=== PATIENT | male | born 1930 | race Caucasian/White ===

== ENCOUNTER 2016-05-04 09:14 | Inpatient (IN) | payer MEDICARE ==
[2016-05-04] VITALS (15 sets, daily range): BP systolic 96–168; BP diastolic 48–74; PULSE 74–109; RESP 16–32; O2SAT 89–98
[~2016-05-04] VITALS: Ht 175.3 cm; Wt 101.9 kg
[~2016-05-04 09:14] MED LIST: AMLO10TA3 PO; ASPI-628 PO; CHOL200025 PO; FURO80TA83 PO; INSU100I13 SUBQ; Insulin Lispro SUBQ; LOVA20TA PO; POTA20TA7 PO; TAMS0.4C29 PO
--- NOTE | 2016-05-04 09:21 | ED.REPORT ---
HPI-General Illness Date of Service May 04, 2016 ED Provider: Juan Do DO Pt is an 85 y/o male w/ a hx of CHF, IDDM, hypertension, presenting to the ED via EMS due to confusion onset this morning. 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 Today, he drove to [employer] with his van, picked up the laundry, and then drove home instead of the laundromat. His son-in-law went to his home to find him there instead of at the laundromat where he should have been. He was apparently acting normally and was able to drive behind his son-in- law back to the laundromat without problems. He got out of the van and unloaded the laundry and sat down to have coffee. He then drove home. His son-in-law remained concerned about his behavior and decided to check up on him back at his house and found him sitting in his van with the engine off and the ronquillo taken out of the ignition staring meaninglessly ahead. EMS was then called and found the patient to be "dazed and confused" with vital signs including O2 sat of 80% on RA, BP 200/70, blood glucose 63, HR 100. He c/o productive cough. Pt denies SOB, fever, abdominal pain, lower extremity edema, dysuria. The patient' s was admitted a few days ago for respiratory distress which was found to be caused by Influenza B. Nursing Notes Stated Complaint: CONFUSION Nursing Notes Reviewed: Yes Allergies: Coded Allergies: No Known Allergies (Verified , 05/04/16) Scheduled Amlodipine (Amlodipine) 10 Mg Tablet 10 MG PO DAILY Aspirin (Aspirin) 81 Mg Tablet 81 MG PO DAILY Calcium Carbonate (Calcium) 600 Mg Tablet 1,200 MG PO DAILY Cholecalciferol (Vitamin D3) (Vitamin D3) 400 Unit Tablet 400 UNIT PO DAILY Furosemide (Furosemide) 80 Mg Tab 80 MG PO DAILY Insulin Glargine (Lantus U100 Insulin Vial) 100 Unit/Ml Vial 60 UNIT SUBQ MORNING Insulin Human Lispro (HumaLOG U100 Insulin Vial) 100 Unit/Ml Unit 7 UNIT SUBQ TIDWM Check blood sugars before meals and at bedtime. Use correction factor only before meals. Blood Sugar Lispro Correction: <151, 0 units; 151-175, 1 unit; 176-200, 2 units; 201-225, 3 units; 226-250, 4 units; 251-275, 5 units; 276-300 , 6 units; 301-325, 7 units; 326-350, 8 units; 351-375, 9 units; 376-400, 10 units; >400, 12 units. Lovastatin (Lovastatin) 20 Mg Tablet 20 MG PO HS Metformin HCl (Metformin HCl ER) 1,000 Mg [id number] 1,000 MG PO BID Metoprolol Tartrate (Metoprolol Tartrate) 25 Mg Tablet 25 MG PO BID Potassium Chloride (Potassium Chloride) 20 Meq Tab.er.prt 20 MEQ PO DAILY Tamsulosin ER (Tamsulosin ER) 0.4 Mg Cap.er.24h 0.4 MG PO HS General Time Seen by MD: 09:17 Chief Complaint Other (Confusion) Hx Obtained From: Patient, Son, EMS Arrived By: Ambulance Sudden in Onset?: No Onset Occurred: 1 - 4 hours ago Symptom Duration: Since onset Severity: Current: No pain currently Severity: Maximum: No pain Past Medical History Past Medical History CHF Hypertension Hx kidney stones Hx prostate CA IDDM Past Surgical History Left knee replacement Smoking History Former Smoker Social History Alcohol Use: "Social" Drug Use: Denies drug use Other Social History: Good social support Ambulatory Status Independent Review of Systems Full Review of Systems Constitutional: Denies: Chills, Fever Respiratory: Reports: Prod cough, green, Prod cough, yellow, Denies: Shortness of breath Cardiovascular: Denies: Chest pain, Edema GI: Denies: Abdominal pain, Diarrhea, Nausea, Vomiting Neurologic: Reports: Confusion, Denies: Focal weakness, Numbness Complete sys rev & neg: except as marked. Physical Exam Vital Signs Vital Signs Date Time Temp Pulse Resp B/P Pulse Ox O2 Delivery O2 Flow Rate FiO2 05/04/16 11:14 102 32 161/64 92 Simple Mask 7 05/04/16 10:36 95 28 168/57 94 Simple Mask 7 05/04/16 10:35 89 Nasal Cannula 6 05/04/16 09:22 37.6 108 32 164/64 92 Nasal Cannula 3 Initial VS: Reviewed, Vital signs abnormal Head / Eyes: Atraumatic, Normocephalic, PERRL ENT: Mucous membranes moist, Conjunctiva normal, No scleral icterus Neck: Supple, Full range of motion Abdomen / GI: Soft, Non-tender, No guarding, No rebound, No distention Extremities: Vascular intact, Neuro intact, No tenderness Skin: Warm, Dry, No cyanosis Psychiatric: Mood/affect normal, Behavior normal, Normal thought content General/Constitutional: Awake, Alert, No acute distress, Cooperative, Not toxic appearing Hypertensive Respiratory / Chest: Atraumatic, No respiratory distress, No retractions, No stridor, No chest tenderness, No chest wall deformity, No crepitus Diminished breath sounds on bases with rales Tachypneic Cardiovascular: Regular rhythm, Heart sounds NL, No gallop, No murmurs, No rubs , Cap refill not delayed, Peripheral circulation NL Heart Rate / Rhythm: Positive: Tachycardia Trace lower extremity edema Neurologic: Oriented X3, Speech NL, No motor deficits, No sensory deficits, CN II - XII intact Interpretation & Diagnostics Lab Results Interpretation Result Diagram: 05/04/16 0940 05/04/16 0940 Test 05/04/16 09:40 05/04/16 09:42 White Blood Count 11.4th/mm3 (3.8-10.1) Red Blood Count 5.53mil/mm3 (4.40-5.80) Hemoglobin 15.4g/dL (13.8-17.2) Hematocrit 47.3% (41.0-50.0) Mean Corpuscular Volume 85.5fL (81-100) Mean Corpuscular Hemoglobin 27.8pg (27.0-35.0) Mean Corpuscular Hemoglobin Concent 32.6% (32.0-37.0) Red Cell Distribution Width 15.3% (12.3-15.4) Platelet Count 136bil/L (150-400) Neutrophils (%) (Auto) 87.9% (40-74) Lymphocytes (%) (Auto) 3.3% (14-46) Monocytes (%) (Auto) 8.2% (4-12) Eosinophils (%) (Auto) 0.1% (0-5) Basophils (%) (Auto) 0.2% (0-3) Sodium Level 141mEq/L (134-144) Potassium Level 3.9mEq/L (3.5-5.2) Chloride Level 98mEq/L (97-108) Carbon Dioxide Level 24mmol/L (18-29) Blood Urea Nitrogen 17mg/dL (8-27) Creatinine 1.00mg/dL (0.76-1.27) Estimat Glomerular Filtration Rate 76mL/min (>59) Glucose Level 91mg/dL (60-99) Calcium Level 9.3mg/dL (8.5-10.1) Magnesium Level 1.4mg/dL (1.6-2.6) Total Bilirubin 0.5mg/dL (0.0-1.2) Aspartate Amino Transf (AST/SGOT) 34U/L (0-50) Alanine Aminotransferase (ALT/SGPT) 20U/L (0-44) Alkaline Phosphatase 80U/L (25-160) Troponin T 0.010ug/L (0.0-0.011) Pro-B-Type Natriuretic Peptide 217.5pg/mL (0-486) Total Protein 6.3g/dL (6.4-8.4) Albumin 3.5g/dL (3.4-5.0) Procalcitonin 0.27ng/mL (0.00-0.08) Lactic Acid Level 1.6mmol/L (0.4-2.0) ECG Interpretation ECG Interpretation: Sinus rhythm rate 94 RBBB and LAFB No change from prior Time: 10:15 Interpreted by: ED physician Normal ECG Interpretation: No acute ischemic changes, No change from prior ECGs ABG Interpretation ABG Interpretation: 7.419/46/72.6/29.4/4.4 Exam Performed by: [facility] Exam Interpreted by: ED physician Indication: Other (Hypoxia) X-Ray Chest Interpretation Chest Xray Interpretation: IMPRESSION: Increased pulmonary vascularity with appearance of mild pleural effusions suggestive of edema. Superimposed area of consolidation in the right base cannot be excluded. Dictated by: Micaela Vines M.D. on 05/04/2016 at 10:15 Approved by: Micaela Vines M.D. on 05/04/2016 at 10:17 View: Portable, 1 view Interpretation / Wet Read by: Interpret - Radiologist Reviewed Previous Films: Worse Re-Eval/Medical Decision Med Decision/Clinical Course Hypoxic respiratory failure ultimately likely due to influenza. Chest x-ray suggested pulmonary edema and with his CHF history, a dose of Lasix was given. However, ultimately this may represent an atypical pneumonia, Rocephin, azithromycin, and Tamiflu were given while awaiting the results of a nasal swab to confirm if this was influenza. Ultimately patient was placed on BiPAP for management of his shortness of breath, he continued to be high hypoxic and tachypneic despite nebulizer treatments and had high oxygen requirements. Time of Eval: 10:32 Re-Evaluation/Progress Note: Pt rechecked. O2 sat 86% on supplemental O2. Informed pt of need for admission for hypoxia and further evaluation. Pt understands and agrees with plan for admission. All questions addressed. Time of Eval: 11:11 Re-Evaluation/Progress Note: Pt rechecked. Oxygen sat 82% on RA. BiPAP ordered. Tachypneic in 30s despite nebulizer. Consultation : Referral / Consult Name: Brianna Hassan DO Consulted With: Hospitalist Call Returned at: 11:21 Director Of Restaurants: Will see patient, Agrees with eval, Agrees with plan, Accepts admit Note: Discussed case with resident who is under Dr. Hassan today. Counseled Regarding: Diagnosis, Lab results, Need for admission Discharge & Departure Primary Impression: Hypoxia Additional Impressions: CHF (congestive heart failure) Congestive heart failure type: unspecified congestive heart failure type Congestive heart failure chronicity: chronic Qualified Code: I50.9 - Heart failure, unspecified Influenza B Disposition: ADMITTED TO HOSPITAL Discharge Condition All VS Reviewed: Yes Condition: Stable Referrals: Dony Bradley DO (PCP) Rony Attestation Portions of this note were transcribed by Raad Alves. I, Dr. Do, personally performed the history, physical exam and medical decision-making; I reviewed and confirmed the accuracy of the information in the transcribed note. Signed by Rony Olivo, 05/04/16 - 1000 copies to: Dony Bradley Timothy S DO May 04, 2016 09:21 RAAD ALVES May 04, 2016 09:29
[2016-05-04 09:59] LABS: BASOPHILS % (AUTO) 0.2 % (0-3); EOSINOPHILS % (AUTO) 0.1 % (0-5); MONOCYTES % (AUTO) 8.2 % (4-12); Mean Corpuscular Hemoglobin 27.8 pg (27.0-35.0); Mean Corpuscular Volume 85.5 fL (81-100); NEUTROPHILS % (AUTO) 87.9 % (40-74); Platelet Count 136 bil/L (150-400)
--- NOTE | 2016-05-04 10:19 | DRSVH ---
PROCEDURE: X-RAY CHEST ONE VIEW, PORTABLE ([id number]) INDICATIONS: cough TECHNIQUE: One view of the chest was acquired. COMPARISON: [facility], , CHEST 1VW (PORTABLE), 09/27/2013, 10:20. FINDINGS: Surgical changes and devices: None. Lungs and pleura: There is blunting of the costophrenic angles bilaterally with increased pulmonary v ascularity. Mediastinum: Mediastinal contours appear normal. Heart size is normal. Bones and chest wall: No suspicious bony lesions. Overlying soft tissues appear unremarkable. IMPRESSION: Increased pulmonary vascularity with appearance of mild pleural effusions suggestive of e vivek. Superimposed area of consolidation in the right base cannot be excluded. Dictated by: Micaela Vines M.D. on 05/04/2016 at 10:15 Approved by: Micaela Vines M.D. on 05/04/2016 at 10:17
[2016-05-04 10:28] LABS: TROPONIN T 0.01 ug/L (0.0-0.011)
[2016-05-04] MEDS ORDERED: Furosemide 10 mg/mL 4 mL Inj IVPUSH ONE ×2 (10:35)
[2016-05-04] MEDS ORDERED: Azithromycin Inj 500 MG in Dextrose 5% w/Vial Mate 250 ML IV ONE (10:50)
[2016-05-04] MEDS ORDERED: Albuterol-Ipratropium 3 mL Inhalation Solution NEB ONE (10:50)
[2016-05-04] MEDS ORDERED: Albuterol 2.5 mg/3 mL Inhalation Solution NEB ONE (10:50)
[2016-05-04] MEDS ORDERED: cefTRIAXone Inj 2,000 MG in Dextrose 5% Minibag Plus 50 ML IV ONE (10:50)
[2016-05-04] MEDS ORDERED: 0.9% Sodium Chloride 1,000 ML IV ONE (10:55)
[2016-05-04 10:59] LABS: Magnesium 1.4 mg/dL (1.6-2.6)
[2016-05-04] MEDS ORDERED: Magnesium Sulf 4 Gm/100 mL H2O 4 GM in IV Premix 1 EACH IV ONE (11:05)
[2016-05-04] MEDS ORDERED: INSU100V7 SUBQ (11:12)
[2016-05-04] MEDS ORDERED: POTA20TA16 PO (11:12)
[2016-05-04] MEDS ORDERED: CALC600T12 PO (11:12)
[2016-05-04] MEDS ORDERED: INSLIS SUBQ (11:12)
[2016-05-04] MEDS ORDERED: FRSM80T PO (11:12)
[2016-05-04] MEDS ORDERED: CHOL400T PO (11:12)
[2016-05-04] MEDS ORDERED: METO25TA6 PO (11:12)
[2016-05-04] MEDS ORDERED: METF-778 PO (11:12)
[2016-05-04] MEDS ORDERED: ASPI-973 PO (11:15)
[2016-05-04] MEDS ORDERED: Alum-Mag Hydrox-Simeth 30 mL Suspension PO PRN (11:40)
[2016-05-04] MEDS ORDERED: Ondansetron 2 mg/mL 2 mL Inj IVPUSH PRN (11:40)
--- NOTE | 2016-05-04 11:41 | ABG ---
DateTimeAnalyzed 11:37:00 -_ pH ____7.419 - 7.350 7.450 pCO2 ___46.2__ -mmHg 35.0 45.0 pO2 ___72.6__ -mmHg 69.0 116 HCO3- ___29.3__ -mmol/L 22.0 26.0 ABE ____4.4__ -mmol/L -2.0 2.0 tHb ___15.0__ -g/dL O2Hb ___92.4__ -% COHb ____1.1__ -% MetHb ____0.8__ -% sO2 ___94.2__ -% 25.0 FIO2 ___40.0__ -% Pressure_Support ___12.0__ -cmH2O PEEP ____5.0__ -cmH2O Set_RR ___18.0__ -b/min Drawn By MT - Date/Time Notified____ 11:40:00 -_ Spontaneous_RR ___20.0__ -b/min Oxygen Device 1 ____BIPAP - Notified By MT - Notified Whom _O'Micaela - B 751 -mmHg tO2 ___19.5__ -Vol% Stuart test _Positive -
[2016-05-04 12:08] LABS: APPEARANCE,URINE HAZY (CLEAR,HAZY); COLOR,URINE YELLOW (YELLOW); OCCULT BLOOD,URINE SMALL (NEGATIVE); UROBILINOGEN,URINE NORMAL (NORMAL)
[2016-05-04] MEDS: 0.9% Sodium Chloride 1,000 ML IV SCH ×2 (12:47→21:46)
[2016-05-04] MEDS ORDERED: Polyethylene Glycol (PEG) 17 Gm Powder PO PRN (13:50)
--- NOTE | 2016-05-04 16:11 | PCM.HPMED ---
Subjective Date of Service May 04, 2016 Primary Provider: Admitting Physician: Brianna Hassan DO Primary Care Physician: Dony Bradley DO Attending Physician: Brianna Hassan DO Admit Status: From the Emergency Department Chief Complaint: Shortness of breath History of Present Illness: Kar Gonzalez Junior is an 85-year-old male with past medical history remarkable for diastolic heart failure, insulin-dependent diabetes mellitus type II, hypertension, prostate cancer post surgical resection who presents to the [facility] ED via EMS for confusion. 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 The patient's is currently hospitalized with influenza. The patient states that he and his have been sick since last April 29. The patient states that he has been feeling mildly short of breath and with a general sense of illness and muscle aches. The patient denies any sore throat and runny nose or worsening cough. Per patient's daughter's report the patient was sent home from work from the [facility] and when he was found at home he was sitting in his work van with the engine off acting as if in a daze. EMS was called and the patient was noted to have an O2 sat of 80% on room air, blood pressure of 200/70 with a heart rate of 100, and blood glucose of 63. The patient denies any swelling of his hands or feet. He is unsure if he takes a daily water pill. Review of Systems: A comprehensive review of systems was obtained and all are negative except for what is included in the history of present illness. Allergies Coded Allergies: No Known Allergies (Verified , 05/04/16) Home Medications Amlodipine (Amlodipine) 10 Mg Tablet 10 MG PO DAILY Aspirin (Aspirin) 81 Mg Tablet 81 MG PO DAILY Calcium Carbonate (Calcium) 600 Mg Tablet 1,200 MG PO DAILY Cholecalciferol (Vitamin D3) (Vitamin D3) 400 Unit Tablet 400 UNIT PO DAILY Furosemide (Furosemide) 80 Mg Tab 80 MG PO DAILY Insulin Glargine (Lantus U100 Insulin Vial) 100 Unit/Ml Vial 60 UNIT SUBQ MORNING Insulin Human Lispro (HumaLOG U100 Insulin Vial) 100 Unit/Ml Unit 5 UNIT SUBQ TIDWM Lovastatin (Lovastatin) 20 Mg Tablet 20 MG PO HS Metformin HCl (Metformin HCl ER) 1,000 Mg [id number] 1,000 MG PO BID Metoprolol Tartrate (Metoprolol Tartrate) 25 Mg Tablet 25 MG PO BID Potassium Chloride (Potassium Chloride) 20 Meq Tab.er.prt 20 MEQ PO DAILY Tamsulosin ER (Tamsulosin ER) 0.4 Mg Cap.er.24h 0.4 MG PO HS PMH Hypertension Diastolic heart failure Diabetes mellitus mellitus type II insulin-dependent Benign prostatic hypertrophy Prostate cancer Surgical History Left knee arthroplasty Prostate cancer post surgical resection Family History The patient's daughter denies family history of heart attacks, strokes, blood clots. Patient's mother had diabetes mellitus type I. 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 Hx Alcohol Use: No Hx Substance Use: No Hx Tobacco Use: Yes Smoking Status: Former Smoker (quit more than 30 years ago) Living Arrangement: with Family (with in a private residence in [place]) Exam Vital Signs Vital Sign - Last Date Time Temp Pulse Resp B/P Pulse Ox O2 Delivery O2 Flow Rate FiO2 05/04/16 15:45 CPAP/BIPAP 05/04/16 12:45 97 29 124/58 93 45 05/04/16 12:40 37.5 05/04/16 12:06 7 Exam Gen.: Elderly male appearing stated age in mild respiratory distress on BiPAP Eyes: Pupils equal round and reactive to light, sclera anicteric, noninjected conjunctiva, moist mucous membranes HENT: Normocephalic atraumatic, external ears without defect, BiPAP mask in place Neck: Trachea midline, no noted JVD, supple Cardiovascular: Quiet heart tones, regular rate and rhythm with low PVC burden noted, S1 and S2 present no murmurs rubs or gallops noted Lungs: Coarse breath sounds bilaterally in the bases with decreased air movement in the right lower base, intermittent wheezing noted in mid to upper lung cunningham Abdomen: Normoactive bowel sounds, soft, mild tenderness at epigastrium, nondistended, bruising noted in lower abdomen bilaterally consistent with subcutaneous insulin injections Extremities: Mild +1 pitting peripheral edema noted in the lower extremities up to the knee, no cyanosis or clubbing, pulses intact at the radial and dorsalis pedis bilaterally : No Cisneros in place, patient able to urinate spontaneously without difficulty Neuro: No focal neurologic deficits, no facial drooping, able to move all extremities without issue Psych: Alert and oriented to person and place, patient believed he had been in the hospital for several days, difficulty to assess date given due to BiPAP mask , normal mood and affect Lab and Diagnostics Result Diagram: 05/04/1693905/04/16939 Microbiology Patient tested positive for influenza B on nasal swab with biofire PCR X-Rays, CTs and MRIs X-RAY CHEST ONE VIEW, PORTABLE ([id number]) IMPRESSION: Increased pulmonary vascularity with appearance of mild pleural effusions suggestive of edema. Superimposed area of consolidation in the right base cannot be excluded. Dictated by: Micaela Vines M.D. on 05/04/2016 at 10:15 Approved by: Micaela Vines M.D. on 05/04/2016 at 10:17 Assessment & Plan Kar Gonzalez Junior is an 85-year-old male with past medical history remarkable for diastolic heart failure, insulin-dependent diabetes mellitus type II, hypertension, prostate cancer post surgical resection who presents to the [facility] ED via EMS for confusion and was found to have oxygen saturation in the 80s on room air at the time of EMS arrival. 1. Acute hypoxic respiratory failure, present on admission - Patient was noted to have oxygen saturation in the low 80s on EMS arrival - In the ED the patient was noted to be saturating in the mid 70s prior to BiPAP placement per nursing reports - Patient on BiPAP currently with goal oxygen saturation greater than 92% given no history of COPD 2. Sepsis, present on admission, acute - Surgical criteria are met with leukocytosis of greater than 11,000, heart rate of 108 and respiratory rate of 32 at admission - Chest x-ray changes show a right lower lobe infiltrate and a possible left lower lobe infiltrate consistent with a likely lobar pneumonia - Viral PCR of nasal swab positive for influenza B - Pro calcitonin is indeterminate at 0.27, lactate has been normal since admission - IV fluids given currently normal saline at 100 mL's per hour - Patient started on ceftriaxone IV, azithromycin IV, oseltamivir in ED 3. Likely post-influenza pneumonia, present on admission, acute - Continue antibiotic course with ceftriaxone IV and azithromycin to cover gram positives gram negatives and atypicals - Treating sepsis with intravenous fluids trending lactate 4. Influenza B, present on admission, acute - Patient and reportedly became sick last April 29 with similar symptoms - is currently hospitalized with influenza B - Patient tested positive for influenza B on viral PCR - Oseltamivir 75 mg twice a day while inpatient 5. Acute on chronic diastolic congestive heart failure, present on admission - Mild peripheral edema noted on physical exam - Echo from 3 years ago noted diastolic heart failure with preserved ejection fraction - Lasix 40 mg given in the ED - Repeat limited echo 6. Diabetes mellitus type II, present on admission, chronic - Patient medication confirmed with [facility] - Patient to be started on Lantus 60 units daily 05/05/2016 - Patient to be started on high correction scale lispro 05/04/2016 7. Hypertension, present on admission, chronic - Restart patient's home medications including amlodipine and metoprolol 8. Benign prostatic hypertrophy, present on admission, chronic - Restart patient's tamsulosin 9. Hypomagnesemia, present on admission, acute - Magnesium IV repletion performed in [facility] ED - Continue to monitor 10. Mild thrombocytopenia, present on admission, unknown duration - 136,000 at admission - Platelets are an acute phase reactant which can oscillate up or down during times of illness - Continue to monitor Bowel regimen available when necessary Antiemetics available when necessary Patient is admitted to inpatient status with likely length of stay greater than 2 nights given most likely diagnoses, therapies required to treat, and likely complications to treatment. Pain Evaluation: Adequate Pain Control VTE Prophylaxis Indicated: Meets Criteria for Anticoag Therapy VTE Prophylaxis: Sub-Q Heparin (Unfractionated), SCDs VTE Mechanical Devices: Intermittant Pneumatic CD Resuscitation Status: CPR: Attempt Resuscitation Time spent 1 hour Attending Statement The patient was seen and examined together with Dr. Payan on 05/04/16 and I have added additional information to the note above. Bethel Huertas DO May 04, 2016 16:11 Brianna Hassan DO May 05, 2016 13:57
[2016-05-04] MEDS ORDERED: Albuterol 1.25 mg/3 mL Inhalation Solution NEB PRN (16:50)
[2016-05-04] MEDS ORDERED: Glucose 40% Oral Gel 15 Gm Tube PO PRN (17:00)
[2016-05-04] MEDS: Heparin 5,000 Unit/mL Inj SUBQ SCH ×2 (17:24→23:32)
[2016-05-04] MEDS: Sodium Chloride LOK Flush 10 mL Syringe IVFLUSH SCH ×2 (17:24→21:55)
[2016-05-04] MEDS: Insulin LISPRO 300 Unit/3 mL Inj SUBQ SCH ×2 (17:30→21:55)
[2016-05-04] MEDS: Albuterol-Ipratropium 3 mL Inhalation Solution NEB SCH (21:16)
[2016-05-05] VITALS (14 sets, daily range): BP systolic 113–170; BP diastolic 48–82; PULSE 57–97; RESP 15–27; O2SAT 92–98
--- NOTE | 2016-05-05 04:51 | NUR ---
Respiratory Pt on BiPAP since HS and throughout shift with FiO2 at 45%; SpO2 approx. 95-97%. Pt denies feeling dyspneic. Slept in chair at bedside per pt preference. VSS. Tele SR 60s with IVCD.
[2016-05-05 05:10] LABS: BASOPHILS % (AUTO) 0.2 % (0-3); EOSINOPHILS % (AUTO) 0 % (0-5); MONOCYTES % (AUTO) 5.4 % (4-12); Mean Corpuscular Hemoglobin 27.7 pg (27.0-35.0); Mean Corpuscular Volume 87.1 fL (81-100); NEUTROPHILS % (AUTO) 87.1 % (40-74); Platelet Count 127 bil/L (150-400)
[2016-05-05 05:50] LABS: Magnesium 2.4 mg/dL (1.6-2.6); Phosphorus 3.7 mg/dL (2.5-4.9)
[2016-05-05] MEDS: Insulin LISPRO 300 Unit/3 mL Inj SUBQ SCH ×4 (08:00→22:00)
[2016-05-05] MEDS: Albuterol-Ipratropium 3 mL Inhalation Solution NEB SCH ×4 (08:28→21:17)
[2016-05-05] MEDS ORDERED: Azithromycin Inj 500 MG in Dextrose 5% w/Vial Mate 250 ML IV SCH (08:30)
[2016-05-05] MEDS: Sodium Chloride LOK Flush 10 mL Syringe IVFLUSH SCH ×2 (08:30→16:14)
[2016-05-05] MEDS ORDERED: 0.9% Sodium Chloride 250 ML ONE (08:34)
[2016-05-05] MEDS: cefTRIAXone Inj 2,000 MG in Dextrose 5% Minibag Plus 50 ML IV SCH (08:41)
[2016-05-05] MEDS: Insulin GLARgine 100 Unit/mL Syringe SUBQ SCH (08:43)
[2016-05-05] MEDS: Heparin 5,000 Unit/mL Inj SUBQ SCH ×2 (08:43→16:14)
[2016-05-05] MEDS: Potassium Chloride 20 mEq SR Tablet PO SCH (08:44)
--- NOTE | 2016-05-05 10:03 | DRSVH ---
PROCEDURE: X-RAY CHEST ONE VIEW, PORTABLE ([id number]) INDICATIONS: pneumonia TECHNIQUE: One view of the chest was acquired. COMPARISON: [facility], CR, XR CHEST 1VW (PORTABLE), 05/04/2016, 9:38. FINDINGS: Surgical changes and devices: None. Lungs and pleura: There is blunting of the costophrenic angles bilaterally with increased pulmonary v ascularity. Mediastinum: Mediastinal contours appear normal. Heart size is normal. Bones and chest wall: No suspicious bony lesions. Overlying soft tissues appear unremarkable. IMPRESSION: Slight decrease in edema and/or pneumonia involving the lung bases, right greater than le ft. Dictated by: Eric Lama A Interpreted: Cami Gramajo MD on 05/05/2016 at 10:02 Transcribed by: VIKKI on 05/05/2016 at 10:03 Approved by: Cami Gramajo MD, PhD on 05/05/2016 at 16:31
--- NOTE | 2016-05-05 16:01 | NUR ---
Social Work-initial assessment: Data:See initial assessment. Pt is a 85 y/o male who was admitted on 01/03/16 for Hypoxia/CHF per H&P. Pt's insurance is [employer] and PCP is Dony Umana MD. EMR Reviewed. Pt's readmission score is 4-high risk. SW met with pt to discuss discharge planning, SW role explained and initial assessment complete. Pt is alert and oriented x3. Pt resides at home with in a mobile home with three steps to enter where pt remains independent with basic ADLs. Pt ambulates independently and does drive. Pt has no HH or SNF history. Pt states that he has completed DPOA/ advanced directive and his daughter Elma is his DPOA. SW requested a copy of DPOA. Patient's is his JOHNNY and she is currently admitted into [facility]. Pt has no intermediate manager care or VA benefits. No discharge needs identified at this time. SW to continue to follow if any needs arise. Pt's family to provide transport home at discharge. SW provided phone number and plan on white board in room. SW will continue to follow. Plan: Anticipated discharge home via POV when medically ready. No discharge needs identified at this time. SW to continue to follow if any needs arise. Madison Neumann LMSW, GLADYS Addendum: 05/05/16 at 1610 by MADISON NEUMANN Amended: Links added.
[2016-05-05] MEDS ORDERED: Furosemide 10 mg/mL 4 mL Inj IVPUSH ONE (16:10)
--- NOTE | 2016-05-05 16:28 | PCM.PNMED ---
Subjective Date of Service May 05, 2016 Subjective Overnight: No acute events the patient slept in his chair overnight on BiPAP Today: Patient had a mild drop in his blood pressure in the a.m. Initial Lasix dose of 80 mg was adjusted to 40 mg given low blood pressure. The patient states he feels significantly better and was able to maintain decent oxygenation on Oxymask without BiPAP. He states that he was able to talk with his by phone yesterday and he was asking how he could contact her today. He believes he is getting much better. Exam Vital Signs Vital Sign - Last Date Time Temp Pulse Resp B/P Pulse Ox O2 Delivery O2 Flow Rate FiO2 05/05/16 07:19 36.4 66 24 133/49 98 OxyMask 10.00 05/05/16 04:49 45 Intake and Output 05/04/16 05/04/16 05/05/16 Cumulative From/Thru 15:00 23:00 07:00 05/04/16 09:22 - 05/05/16 06:45 Intake Total 625 ml 2154 ml 2779 ml Output Total 500 ml 200 ml 700 ml Balance 125 ml 1954 ml 2079 ml Intake Oral 120 ml 400 ml 520 ml IV Total 505 ml 1754 ml 2259 ml Output Urine Total 500 ml 200 ml 700 ml Exam Gen.: Alert elderly male sitting up appearing stated age in no acute respiratory distress on oxymask, coarse wet cough noted Eyes: Pupils equal round and reactive to light, sclera anicteric, noninjected conjunctiva, moist mucous membranes HENT: Normocephalic atraumatic, external ears without defect, significant oropharyngeal erythema noted without significant postnasal drip Neck: Trachea midline, no noted JVD, supple Cardiovascular: Quiet heart tones, regular rate and rhythm, S1 and S2 present no murmurs rubs or gallops noted Lungs: Coarse breath sounds bilaterally in the bases with decreased air movement in the right lower base, no wheezing noted today Abdomen: Normoactive bowel sounds, soft, mild tenderness at epigastrium, nondistended, bruising noted in lower abdomen bilaterally consistent with subcutaneous insulin injections Extremities: Moderate 2+ pitting peripheral edema noted in the lower extremities up to the knee, no cyanosis or clubbing, pulses intact at the radial and dorsalis pedis bilaterally : No Cisneros in place Neuro: No focal neurologic deficits, no facial drooping, able to move all extremities without issue Psych: normal mood and affect IVs and Medications Medications Reviewed: Medications were reviewed in detail Lab and Diagnostics Result Diagram: 05/05/1642805/05/16428 Microbiology Patient tested positive for influenza B on nasal swab with biofire PCR X-Rays, CTs and MRIs X-RAY CHEST ONE VIEW, PORTABLE ([id number]) IMPRESSION: Increased pulmonary vascularity with appearance of mild pleural effusions suggestive of edema. Superimposed area of consolidation in the right base cannot be excluded. Dictated by: Micaela Vines M.D. on 05/04/2016 at 10:15 Approved by: Micaela Vines M.D. on 05/04/2016 at 10:17 Assessment & Plan Kar Gonzalez Junior is an 85-year-old male with past medical history remarkable for diastolic heart failure, insulin-dependent diabetes mellitus type II, hypertension, prostate cancer post surgical resection who presents to the [facility] ED via EMS for confusion and was found to have oxygen saturation in the 80s on room air at the time of EMS arrival. 1. Acute hypoxic respiratory failure, present on admission - Patient was noted to have oxygen saturation in the low 80s on EMS arrival - In the ED the patient was noted to be saturating in the mid 70s prior to BiPAP placement per nursing reports - Patient on BiPAP currently with goal oxygen saturation greater than 92% given no history of COPD 2. Sepsis, present on admission, acute - SIRS criteria are met with leukocytosis of greater than 11,000, heart rate of 108 and respiratory rate of 32 at admission - Chest x-ray personally reviewed on May 04, which shows a right lower lobe infiltrate and a possible left lower lobe infiltrate consistent with a likely bilateral lobar pneumonia - Viral PCR of nasal swab positive for influenza B - Pro calcitonin is indeterminate at 0.27, lactate trended has been normal since admission - Discontinue IV fluids given obvious fluid overload - Continue ceftriaxone IV 7 day course to end May 10 - Continue azithromycin IV 7 day course to end May 10 - Continue oseltamivir 10 day course to end May 13 3. Likely post-influenza pneumonia, present on admission, acute - Continue antibiotic course with ceftriaxone IV and azithromycin IV to cover gram positives gram negatives and atypicals as described above - Treating sepsis with intravenous fluids trending lactate 4. Influenza B, present on admission, acute - Patient tested positive for influenza B on viral PCR - Oseltamivir 75 mg twice a day as described above 5. Acute on chronic diastolic congestive heart failure, present on admission - Mild peripheral edema noted on physical exam - Echo from 3 years ago noted diastolic heart failure with preserved ejection fraction - Lasix 40 mg given in the ED - Complete echo ordered given last echo in 2013 - lasix 40mg daily with additional 40mg Iv dose given in afternoon on 05/05 6. Diabetes mellitus type II, present on admission, chronic - Patient medication confirmed with [facility] - Patient started on Lantus 60 units daily 05/05/2016 - Patient started on high correction scale lispro 05/04/2016 7. History of Hypertension, present on admission, chronic - Held patient's home medications including amlodipine and metoprolol given low normotensive on 05/05/2016 - see CHF furosamide above 8. Benign prostatic hypertrophy, present on admission, chronic - Restart patient's tamsulosin 9. Hypomagnesemia, present on admission, acute - Magnesium IV repletion performed in [facility] ED - Continue to monitor 10. Mild thrombocytopenia, present on admission, unknown duration - 136,000 at admission - Platelets are an acute phase reactant which can oscillate up or down during times of illness - Continue to monitor Bowel regimen available when necessary Antiemetics available when necessary Disposition: Patient will likely remain inpatient for the next 2 days with discharge home likely without any barriers to discharge at this time. Pain Evaluation: Adequate Pain Control GI Prophylaxis: Not indicated VTE Prophylaxis: Sub-Q Heparin (Unfractionated), SCDs VTE Mechanical Devices: Intermittant Pneumatic CD Resuscitation Status: CPR: Attempt Resuscitation Time spent 35 minutes Attending Statement The patient was seen and examined together with Dr. Ellis on 05/05/16 and I have added additional information to the note above. Bethel Huertas DO May 05, 2016 07:50 Brianna Hassan DO May 08, 2016 16:04
[2016-05-06] VITALS (14 sets, daily range): BP systolic 113–150; BP diastolic 50–67; PULSE 62–79; RESP 16–26; O2SAT 90–99
[2016-05-06] MEDS: Heparin 5,000 Unit/mL Inj SUBQ SCH ×3 (00:20→17:50)
[2016-05-06] MEDS: Sodium Chloride LOK Flush 10 mL Syringe IVFLUSH SCH ×3 (00:20→17:50)
--- NOTE | 2016-05-06 00:38 | NUR ---
Blood culture Patient's aerobic blood culture returned positive; presumptive staph. FYI page to provider. Continue to monitor.
[2016-05-06 03:05] LABS: BASOPHILS % (AUTO) 0.2 % (0-3); EOSINOPHILS % (AUTO) 0.3 % (0-5); MONOCYTES % (AUTO) 7.9 % (4-12); Mean Corpuscular Hemoglobin 27.5 pg (27.0-35.0); Mean Corpuscular Volume 87.6 fL (81-100); NEUTROPHILS % (AUTO) 79.2 % (40-74); Platelet Count 127 bil/L (150-400)
[2016-05-06] MEDS ORDERED: Potassium Chloride 20 mEq/15 mL 15mL Oral Soln PO ONE (07:45)
[2016-05-06] MEDS: Albuterol-Ipratropium 3 mL Inhalation Solution NEB SCH ×4 (07:54→20:27)
[2016-05-06] MEDS: Insulin LISPRO 300 Unit/3 mL Inj SUBQ SCH ×4 (08:00→21:49)
[2016-05-06] MEDS: Potassium Chloride 20 mEq SR Tablet PO SCH (08:30)
--- NOTE | 2016-05-06 09:53 | DRSVH ---
PROCEDURE: X-RAY CHEST ONE VIEW, PORTABLE ([id number]) INDICATIONS: pneumonia TECHNIQUE: One view of the chest was acquired. COMPARISON: [facility], CR, XR CHEST 1VW (PORTABLE), 05/05/2016, 4:53. FINDINGS: Surgical changes and devices: None. Lungs and pleura: No pleural effusions or pneumothorax. Interstitium is prominent and mild edema is suspected. Interval increase in bibasilar airspace opacities. Mediastinum: Mediastinal contours appear normal. Heart size is normal. Bones and chest wall: No suspicious bony lesions. Overlying soft tissues appear unremarkable. IMPRESSION: Mild edema and/or pneumonia involving the lung bases increased from prior exam. Dictated by: Eric Lama RRA Interpreted: Cami Gramajo MD on 05/06/2016 at 9:52 Transcribed by: VIKKI on 05/06/2016 at 9:53 Approved by: Cami Gramajo MD, PhD on 05/06/2016 at 16:35
[2016-05-06] MEDS: Insulin GLARgine 100 Unit/mL Syringe SUBQ SCH (10:00)
[2016-05-06] MEDS: cefTRIAXone Inj 2,000 MG in Dextrose 5% Minibag Plus 50 ML IV SCH (10:04)
--- NOTE | 2016-05-06 11:00 | DRSVH ---
[facility] [address] [place] [address] Echocardiogram Report Name: NELSON HELLER Date: 05/06/2016 Height: 69 in Hospital Exam Location: [facility] Weight: 233 lb Gender: Male BSA: 2.2 m2 : 1930 Age: 85 yrs BP: 131/53 mmHg Reason For Study: PERIPHERAL/PULMONARY EDEMA Ordering Phys[facility]: Selena Valles Referring Physician: Dr. Sofía Bradley Interpretation Summary Left ventricular systolic function is normal. The ejection fraction is estimated to be 65-70%. There is mild mitral regurgitation. There is mild aortic valve sclerosis. There is mild aortic regurgitation. The right ventricular systolic pressure is estimated at 42 mmHg assuming a right atrial pressure of 8 mm Hg. Compared to the prior echo exam, there has been a decrease in the severity of pulmonary hypertension. Procedure: A two-dimensional transthoracic echocardiogram with color flow and Doppler was performed. The study quality was technically adequate. Comparison is made with the echocardiogram of 09-22-2013. The subcostal views were difficult to obtain and are suboptimal in quality. The patient was in normal sinus rhythm during the exam. Left Ventricle: The left ventricle is normal in size. Left ventricular wall thickness is mildly increased. Left ventricular systolic function is normal. The ejection fraction is estimated to be 65-70%. Right Ventricle: The right ventricle is normal in size and function. Atria: Both atria are mildly dilated. There is no Doppler evidence for an atrial septal defect. Mitral Valve: The mitral valve leaflets appear normal. There is no evidence of stenosis, fluttering, or prolapse. There is mild mitral annular calcification. There is mild mitral regurgitation. Aortic Valve: The aortic valve is trileaflet. The aortic valve is slightly calcified. The aortic valve opens well. There is mild aortic valve sclerosis. There is mild aortic regurgitation. Tricuspid Valve: The tricuspid valve leaflets are thin and pliable. There is a trace or physiologic amount of tricuspid regurgitation. The right ventricular systolic pressure is estimated at 42 mmHg assuming a right atrial pressure of 8 mm Hg. Compared to the prior echo exam, there has been a decrease in the severity of pulmonary hypertension. Pulmonic Valve: The pulmonic valve is not well visualized. There is no pulmonic valvular regurgitation. Great Vessels: The aortic root is mildly dilated. The ascending aorta is mildly enlarged. The pulmonary artery is normal size. The IVC has a measurement of 17 mm. The IVC is of normal diameter and collapses less than 50% with a sniff. This suggests a right atrial pressure of 8 mm Hg. Pericardium/ Pleura There is no pericardial effusion. There is no pleural effusion. MMode/2D Measurements & Calculations LVIDd: 4.8 cm LA dimension: 4.2 cm RA long axis LVOT diam: 2.2 cm LVIDs: 2.7 cm AoV Opening FS: 43.1 % LA A2 area: 26.0 cm RA area IVSd: 1.3 cm LA A4 area: 27.6 cm Ao root diam LVPWd: 1.1 cm LA length (vol) : 22.6 cm RA vol Aortic Jxn: 3.2 cm LA vol: 84.0 ml : 69.2 ml asc Aorta Diam LA vol index RA : 31.4 mm2 Ao Arch Diam (Prox Trans): 3.5 cm IVC diam: 1.7 cm LV prieto. diameter/BSA LV sys. diameter/BSA RVD2 (mid) (cm/m^2): 2.2 (cm/m^2): 1.2 : 3.6 cm Doppler Measurements & Calculations Ao V2 max MV E max ben MV E/A: 0.82 TR max ben : 212.9 cm/sec : 116.8 cm/sec Med Peak E' Ben : 290.1 cm/sec Ao max P.1 mmHg MV A max ben TR max PG Ao mean P.2 mmHg : 143.2 cm/sec E/E' med: 15.7 : 33.7 mmHg LVOT Max Ben MV P1/2t: 56.8 msec Lat Peak E' Ben PA V2 max : 133.7 cm/sec : 202.7 cm/sec E/E' lat: 12.3 PA mean PG JOVANNA(I,D): 2.6 cm E/e' average sev ratio: 0.67 PA Accel Time AI P1/2t: 482.2 msec Pulm A Revs Dur : 0.13 sec AI dec slope : 269.9 cm/s2c MV A dur : 0.13 sec MV P1/2t max ben Ao V2 mean LV V1 max PG PA V2 mean : 144.1 cm/sec : 148.4 cm/sec Ao V2 VTI: 39.4 cm LV V1 VTI MVA(P1/2t): 3.9 cm2 : 26.6 cm JOVANNA(V,D): 2.4 cm2 JOVANNA indexed to BSA Pulm A Revs Dur - MV (cm^2/m^2): 1.2 A Dur: 0.03 msec Electronically signed by: Jace Gallegos on Reading Physician:05/06/2016 10:59 AM
--- NOTE | 2016-05-06 11:52 | NUR ---
Bipap Pt pulled off Bipap at 0715, desatted to 80%, administered 6L NC. SPO2 94%. Pt resting in bed. Pt's on different floor states he cannot remember her room number. This RN encouraged pt RN will find . Care continues.
--- NOTE | 2016-05-06 14:19 | PCM.PNMED ---
Subjective Date of Service May 06, 2016 Subjective overnight: No acute events overnight Today: Patient says he feels better but he still does not feel right. The patient understands that he will likely need to remain inpatient for at least another day or two given his illness. He is doing well and feels as though he is heading in the right direction. His shortness of breath is significantly improved and he is also noticed an improvement in his leg swelling. Exam Vital Signs Vital Sign - Last Date Time Temp Pulse Resp B/P Pulse Ox O2 Delivery O2 Flow Rate FiO2 05/06/16 04:50 74 24 93 05/06/16 04:03 36.7 131/53 BiPAP 05/05/16 23:53 6.00 05/05/16 21:17 45 Intake and Output 05/05/16 05/05/16 05/06/16 Cumulative From/Thru 15:00 23:00 07:00 05/04/16 09:22 - 05/06/16 06:26 Intake Total 912 ml 260 ml 3951 ml Output Total 700 ml 700 ml 2100 ml Balance 212 ml -440 ml 1851 ml Intake Oral 902 ml 240 ml 1662 ml IV Total 10 ml 20 ml 2289 ml Output Urine Total 700 ml 700 ml 2100 ml # Bowel Movements 1 1 Exam Gen.: Alert elderly male sitting up appearing stated age in no acute respiratory distress on room air, coarse wet cough noted Eyes: Pupils equal round and reactive to light, sclera anicteric, noninjected conjunctiva, moist mucous membranes HENT: Normocephalic atraumatic, external ears without defect, significant oropharyngeal erythema noted without significant postnasal drip Neck: Trachea midline, no noted JVD, supple Cardiovascular: Quiet heart tones, regular rate and rhythm, S1 and S2 present no murmurs rubs or gallops noted Lungs: Coarse breath sounds bilaterally in the bases with consistent decreased air movement in the right lower base, no wheezing noted today Abdomen: Normoactive bowel sounds, soft, mild tenderness at epigastrium, nondistended, bruising noted in lower abdomen bilaterally consistent with subcutaneous insulin injections Extremities: mild 1+ pitting peripheral edema noted in the lower extremities up to the knee, no cyanosis or clubbing, pulses intact at the radial and dorsalis pedis bilaterally : No Cisneros in place Neuro: No focal neurologic deficits, no facial drooping, able to move all extremities without issue Psych: normal mood and affect IVs and Medications Medications Reviewed: Medications were reviewed in detail Lab and Diagnostics Result Diagram: 05/06/16 0235 05/06/165 Microbiology Patient tested positive for influenza B on nasal swab with biofire PCR X-Rays, CTs and MRIs X-RAY CHEST ONE VIEW, PORTABLE ([id number]) IMPRESSION: Increased pulmonary vascularity with appearance of mild pleural effusions suggestive of edema. Superimposed area of consolidation in the right base cannot be excluded. Dictated by: Micaela Vines M.D. on 05/04/2016 at 10:15 Approved by: Micaela Vines M.D. on 05/04/2016 at 10:17 Cardiac Echo Impressions Echocardiogram Report Interpretation Summary Left ventricular systolic function is normal. The ejection fraction is estimated to be 65-70%. There is mild mitral regurgitation. There is mild aortic valve sclerosis. There is mild aortic regurgitation. The right ventricular systolic pressure is estimated at 42 mmHg assuming a right atrial pressure of 8 mm Hg. Compared to the prior echo exam, there has been a decrease in the severity of pulmonary hypertension. Electronically signed by: Jace Gallegos on Reading Physician:05/06/2016 10:59 AM Assessment & Plan Kar Gonzalez Junior is an 85-year-old male with past medical history remarkable for diastolic heart failure, insulin-dependent diabetes mellitus type II, hypertension, prostate cancer post surgical resection who presents to the [facility] ED via EMS for confusion and was found to have oxygen saturation in the 80s on room air at the time of EMS arrival. Hospital Day 3 1. Acute hypoxic respiratory failure, present on admission - Patient was noted to have oxygen saturation in the low 80s on EMS arrival - In the ED the patient was noted to be saturating in the mid 70s prior to BiPAP placement per nursing reports - Patient on room air currently with goal oxygen saturation greater than 92% given no history of COPD - O2 supplementation as necessary 2. Sepsis, present on admission, acute - SIRS criteria are met with leukocytosis of greater than 11,000, heart rate of 108 and respiratory rate of 32 at admission - Chest x-ray personally reviewed on May 05, shows bilateral left and right lower lobe infiltrate consistent with a likely bilateral lobar pneumonia - Viral PCR of nasal swab positive for influenza B - Pro calcitonin was indeterminate at admission 0.27 increased on hospital day 2 to 1.48 consistent with bilateral pneumonia seen on chest xray - IV fluids started at admission discontinued 05/05 given obvious fluid overload due to CHF - Continue ceftriaxone IV 7 day course to end May 10 - Continue azithromycin IV 7 day course to end May 10 - Continue oseltamivir 10 day course to end May 13 3. Likely post-influenza pneumonia, present on admission, acute - Continue antibiotic course with ceftriaxone IV and azithromycin IV to cover gram positives gram negatives and atypicals as described above - initially treated sepsis with antibiotics, antivirals and intravenous fluids while trending lactate as above 4. Influenza B, present on admission, acute - Patient tested positive for influenza B on viral PCR - Oseltamivir 75 mg twice a day as described above 5. Acute on chronic diastolic congestive heart failure, present on admission - Mild peripheral edema noted on physical exam - Echo from 3 years ago noted diastolic heart failure with preserved ejection fraction - Lasix 40 mg given in the ED - Complete echo ordered shows intact EF with improvement in pulmonary hypertension - continue regular Lasix 80mg daily with additional 40mg PO dose given in afternoon on 05/06 6. Diabetes mellitus type II, present on admission, chronic - Patient medication confirmed with [facility] pharmacy - Patient started on Lantus 60 units daily 05/05/2016 - Patient started on high correction scale lispro 05/04/2016 7. History of Hypertension, present on admission, chronic - continue patients amlodipine and metoprolol - see CHF furosamide above - consider switch from amlodipine to Lisinopril given DM with CHF 8. Benign prostatic hypertrophy, present on admission, chronic - Restart patient's tamsulosin 9. Hypomagnesemia, present on admission, acute - Magnesium IV repletion performed in [facility] ED - Continue to monitor 10. Mild thrombocytopenia, present on admission, unknown duration - 136,000 at admission - Platelets are an acute phase reactant which can oscillate up or down during times of illness - Continue to monitor Bowel regimen available when necessary Antiemetics available when necessary Disposition: Patient will likely remain inpatient for the next 1-2 days with discharge home likely without any barriers to discharge at this time. GI Prophylaxis: Not indicated VTE Prophylaxis: Sub-Q Heparin (Unfractionated), SCDs VTE Mechanical Devices: Intermittant Pneumatic CD Resuscitation Status: CPR: Attempt Resuscitation Time spent 35 minutes Attending Statement The patient was seen and examined together with Dr. Ellis on 05/06/16 and I agree with the history, exam and plan as outlined in the note above. Bethel Huertas DO May 06, 2016 07:57 Brianna Hassan DO May 08, 2016 16:02
--- NOTE | 2016-05-06 18:23 | NUR ---
Oxygen Pt on 3L NC SPO2 mid 90%. Tolerating well. Titrated down at approximately 1400. Care continues.
--- NOTE | 2016-05-06 18:25 | NUR ---
Wanting to go home Pt concerned about who is in [facility]. Stated he was feeling much better. Would like to go home tomorrow. Encouraged pt. Pt is appropriate and acceptable with care. Care continues.
[2016-05-07] VITALS (12 sets, daily range): BP systolic 131–153; BP diastolic 54–72; PULSE 61–70; RESP 16–22; O2SAT 92–97
[2016-05-07] MEDS: Heparin 5,000 Unit/mL Inj SUBQ SCH ×3 (02:18→17:17)
[2016-05-07] MEDS: Sodium Chloride LOK Flush 10 mL Syringe IVFLUSH SCH ×3 (02:18→17:17)
[2016-05-07 02:59] LABS: BASOPHILS % (AUTO) 0.4 % (0-3); EOSINOPHILS % (AUTO) 1.7 % (0-5); Mean Corpuscular Hemoglobin 27.6 pg (27.0-35.0); Mean Corpuscular Volume 89.3 fL (81-100); NEUTROPHILS % (AUTO) 76.5 % (40-74); Platelet Count 154 bil/L (150-400)
--- NOTE | 2016-05-07 05:43 | NUR ---
Respiratory Patient continues on BiPAP overnight; desats to 89-90% SpO2 on 3L nasal cannula when asleep, and continues to have crackles in the bases of his lungs bilaterally. Encouraged patient to continue cough/deep breathe/acapella exercises while awake to promote mobilization of the fluid in his lungs. Patient verbalized understanding. Continue to monitor.
[2016-05-07] MEDS: Insulin LISPRO 300 Unit/3 mL Inj SUBQ SCH ×4 (07:50→21:16)
[2016-05-07] MEDS: cefTRIAXone Inj 2,000 MG in Dextrose 5% Minibag Plus 50 ML IV SCH (07:57)
[2016-05-07] MEDS: Potassium Chloride 20 mEq SR Tablet PO SCH (07:58)
[2016-05-07] MEDS: Albuterol-Ipratropium 3 mL Inhalation Solution NEB SCH ×4 (08:57→20:41)
[2016-05-07] MEDS: Insulin GLARgine 100 Unit/mL Syringe SUBQ SCH (10:14)
[2016-05-07] MEDS ORDERED: acetaZOLAMIDE 250 mg Tablet PO ONE (12:15)
--- NOTE | 2016-05-07 13:29 | NUR ---
Evaluation completed. Please go to "Notes" then click on "Assessments and Notes" (bottom left corner of screen). Then select appropriate discipline tab on top of screen.
--- NOTE | 2016-05-07 15:46 | PCM.PNMED ---
Subjective Date of Service May 07, 2016 Subjective overnight: Patient required BiPAP overnight due to desaturation down to 89% all on 3 L nasal cannula. No acute events otherwise noted. Today: Patient states that he feels like he is continuing to improve. The patient understands plan will be to treat his fluid overload with diuretics and treat his pneumonia with antibiotics. The patient likes using his Acapella device and leads it is helping to break up the consolidation in his lungs. Nursing reports the patient is weak on transfer, physical therapy will be consulted to evaluate for discharge planning. Exam Vital Signs Vital Sign - Last Date Time Temp Pulse Resp B/P Pulse Ox O2 Delivery O2 Flow Rate FiO2 05/07/16 04:49 70 05/07/16 03:55 20 95 40 05/07/16 03:41 36.8 138/54 BiPAP 05/06/16 20:09 3.00 Intake and Output 05/06/16 05/06/16 05/07/16 Cumulative From/Thru 15:00 23:00 07:00 05/04/16 09:22 - 05/07/16 06:14 Intake Total 1850 ml 330 ml 6131 ml Output Total 1700 ml 875 ml 4675 ml Balance 150 ml -545 ml 1456 ml Intake Oral 1840 ml 300 ml 3802 ml IV Total 10 ml 30 ml 2329 ml Output Urine Total 1700 ml 875 ml 4675 ml # Voids 3 3 # Bowel Movements 1 2 Exam Gen.: Alert elderly male sitting up appearing stated age in no acute respiratory distress on room air using his Acapella device Eyes: Pupils equal round and reactive to light, sclera anicteric, noninjected conjunctiva, moist mucous membranes HENT: Normocephalic atraumatic, external ears without defect, significant oropharyngeal erythema noted without significant postnasal drip Neck: Trachea midline, no noted JVD, supple Cardiovascular: Quiet heart tones, regular rate and rhythm, S1 and S2 present no murmurs rubs or gallops noted Lungs: continued mild coarse breath sounds bilaterally in the bases right greater than left without any wheezing noted today Abdomen: Normoactive bowel sounds, soft, mild tenderness at epigastrium, nondistended, bruising noted in lower abdomen bilaterally consistent with subcutaneous insulin injections Extremities: improving mild 1+ pitting peripheral edema noted in the lower extremities up to the knee, no cyanosis or clubbing, pulses intact at the radial and dorsalis pedis bilaterally : No Cisneros in place Neuro: No focal neurologic deficits, no facial drooping, able to move all extremities without issue Psych: normal mood and affect IVs and Medications Medications Reviewed: Medications were reviewed in detail Lab and Diagnostics Result Diagram: 05/07/1622905/07/16229 Microbiology Patient tested positive for influenza B on nasal swab with biofire PCR X-Rays, CTs and MRIs X-RAY CHEST ONE VIEW, PORTABLE ([id number]) IMPRESSION: Increased pulmonary vascularity with appearance of mild pleural effusions suggestive of edema. Superimposed area of consolidation in the right base cannot be excluded. Dictated by: Micaela Vines M.D. on 05/04/2016 at 10:15 Approved by: Micaela Vines M.D. on 05/04/2016 at 10:17 Cardiac Echo Impressions Echocardiogram Report Interpretation Summary Left ventricular systolic function is normal. The ejection fraction is estimated to be 65-70%. There is mild mitral regurgitation. There is mild aortic valve sclerosis. There is mild aortic regurgitation. The right ventricular systolic pressure is estimated at 42 mmHg assuming a right atrial pressure of 8 mm Hg. Compared to the prior echo exam, there has been a decrease in the severity of pulmonary hypertension. Electronically signed by: Jace Gallegos on Reading Physician:05/06/2016 10:59 AM Assessment & Plan Kar Gonzalez Junior is an 85-year-old male with past medical history remarkable for diastolic heart failure, insulin-dependent diabetes mellitus type II, hypertension, prostate cancer post surgical resection who presents to the [facility] ED via EMS for confusion and was found to have oxygen saturation in the 80s on room air at the time of EMS arrival. Hospital Day 4 1. Acute hypoxic respiratory failure, present on admission - Patient was noted to have oxygen saturation in the low 80s on EMS arrival - In the ED the patient was noted to be saturating in the mid 70s prior to BiPAP placement per nursing reports - Patient on room air currently with goal oxygen saturation greater than 92% given no history of COPD - O2 supplementation as necessary - Attempt to titrate off O2 specifically need for BiPAP as patient does not have CPAP at home 2. Sepsis, present on admission, acute - SIRS criteria are met with leukocytosis of greater than 11,000, heart rate of 108 and respiratory rate of 32 at admission - Chest x-ray personally reviewed on May 05, shows bilateral left and right lower lobe infiltrate consistent with a likely bilateral lobar pneumonia - Viral PCR of nasal swab positive for influenza B - Pro calcitonin was indeterminate at admission 0.27 increased on hospital day 2 to 1.48 consistent with bilateral pneumonia seen on chest xray - IV fluids started at admission discontinued 05/05 given obvious fluid overload due to CHF - Continue ceftriaxone IV 7 day course to end May 10 Can be switched to Cefdinir PO at discharge - Continue azithromycin IV 7 day course to end May 10 - Continue oseltamivir 10 day course to end May 13 3. Likely post-influenza pneumonia, present on admission, acute - Continue antibiotic course with ceftriaxone IV and azithromycin IV to cover gram positives gram negatives and atypicals as described above - initially treated sepsis with antibiotics, antivirals and intravenous fluids while trending lactate as above 4. Influenza B, present on admission, acute - Patient tested positive for influenza B on viral PCR - Oseltamivir 75 mg twice a day as described above 5. Acute on chronic diastolic congestive heart failure, present on admission - Mild peripheral edema noted on physical exam - Echo from 3 years ago noted diastolic heart failure with preserved ejection fraction - Lasix 40 mg given in the ED - Complete echo ordered shows intact EF with improvement in pulmonary hypertension - continue regular Lasix 80mg daily with additional 40mg PO dose given in afternoon on 05/06 6. Acute metabolic alkalosis, not present on admission, being treated - Likely secondary to diuretic use with contraction alkalosis - 1 dose of Acetazolamide IF given today - monitor 7. Diabetes mellitus type II, present on admission, chronic - Patient medication confirmed with [facility] - Patient started on Lantus 60 units daily 05/05/2016 - Patient started on high correction scale lispro 05/04/2016 8. History of Hypertension, present on admission, chronic - continue patients amlodipine and metoprolol - see CHF furosamide above - consider switch from amlodipine to Lisinopril given DM with CHF 9. Benign prostatic hypertrophy, present on admission, chronic - Restart patient's tamsulosin 10. Hypomagnesemia, present on admission, acute - Magnesium IV repletion performed in [facility] ED - Continue to monitor 11. Mild thrombocytopenia, present on admission, unknown duration - 136,000 at admission - Platelets are an acute phase reactant which can oscillate up or down during times of illness - Continue to monitor Bowel regimen available when necessary Antiemetics available when necessary Disposition: Patient will likely remain inpatient for the next 1-2 days with discharge home, pending physical therapy evaluation. The patient may require home oxygen therapy however this will be evaluated on a day-to-day basis. Pain Evaluation: Adequate Pain Control GI Prophylaxis: Not indicated VTE Prophylaxis: Sub-Q Heparin (Unfractionated), SCDs VTE Mechanical Devices: Intermittant Pneumatic CD Resuscitation Status: CPR: Attempt Resuscitation Time spent 30 minutes Attending Statement The patient was seen and examined together with Dr. Ellis on 05/07/16 and I have added additional information to the note above. Bethel Huertas DO May 07, 2016 07:42 Brianna Hassan DO May 08, 2016 16:01
--- NOTE | 2016-05-07 16:58 | NUR ---
Oxygen requirements Prior to nebulizer treatment, pt was placed on room air to assess oxygen needs. Pt desaturated to 86-88% while at rest. I titrated oxygen back up and determined 4 LPM NC kept his oxygen between 92-94%. Pt will likely need home oxygen when ready for discharge. Will re-evaluate tomorrow. Seferino Erwin, ENVIRONMENTAL MAINTENANCE WORKER
--- NOTE | 2016-05-07 18:03 | NUR ---
Respiratory/Ambulation No reports of chest pain/pressure/discomfort. Tele SR with IVCD, HR 60s. BP within normal limits. No reports of SOB at rest, reports SOB with exertion. SPO2 on 4LNC 92% at beginning of shift, patient now on 3LNC with SPO2 at 98%. No reports of n/v/d/c or abdominal pain. Tolerating PO intake well. Patient heavy 1PA to chair this AM, a little unsteady with shuffling gait. PT eval ordered and following.
[2016-05-08] VITALS (11 sets, daily range): BP systolic 126–160; BP diastolic 60–74; PULSE 62–87; RESP 18–20; O2SAT 92–95
[2016-05-08] MEDS: Sodium Chloride LOK Flush 10 mL Syringe IVFLUSH SCH ×4 (00:49→21:14)
[2016-05-08] MEDS: Heparin 5,000 Unit/mL Inj SUBQ SCH ×3 (00:49→17:26)
[2016-05-08 03:01] LABS: Mean Corpuscular Hemoglobin 27.5 pg (27.0-35.0); Mean Corpuscular Volume 87.8 fL (81-100); Platelet Count 165 bil/L (150-400)
[2016-05-08 03:24] LABS: BASOPHILS % (AUTO) 0.1 % (0-3); EOSINOPHILS % (AUTO) 2.8 % (0-5); MONOCYTES % (AUTO) 10.4 % (4-12); NEUTROPHILS % (AUTO) 75.1 % (40-74)
--- NOTE | 2016-05-08 05:05 | NUR ---
Respiratory Pt SpO2 88% while sleeping. Increased O2 to 4L NC and SpO2 93-94% rest of shift. Encouraged pt use of acapella and pt agreeable. VSS and Tele SR IVCD 60's-70's.
[2016-05-08] MEDS ORDERED: predniSONE 20 mg Tablet PO ONE (07:25)
[2016-05-08] MEDS: Albuterol-Ipratropium 3 mL Inhalation Solution NEB SCH (07:30)
[2016-05-08] MEDS: Insulin LISPRO 300 Unit/3 mL Inj SUBQ SCH ×4 (08:00→21:10)
[2016-05-08] MEDS: Potassium Chloride 20 mEq SR Tablet PO SCH (08:24)
[2016-05-08] MEDS: cefTRIAXone Inj 2,000 MG in Dextrose 5% Minibag Plus 50 ML IV SCH (08:25)
[2016-05-08] MEDS: Insulin GLARgine 100 Unit/mL Syringe SUBQ SCH (08:25)
--- NOTE | 2016-05-08 11:23 | PCM.PNMED ---
Subjective Date of Service May 08, 2016 Subjective This morning the patient is sitting up in a chair. He reports that he is doing well. He is eager to be up and more active if possible today. He would like to see how he does without oxygen. His appetite is improved and he denies nausea. He denies shortness of breath, fever and chills. Overnight, the patient did not require BiPAP. He did need 4L O2 via nasal cannula to maintain O2 saturations of 93-94%. Otherwise uneventful night. Exam Vital Signs Vital Sign - Last Date Time Temp Pulse Resp B/P Pulse Ox O2 Delivery O2 Flow Rate FiO2 05/08/16 08:30 87 05/08/16 08:16 36.5 18 130/66 93 Nasal Cannula 4.00 05/07/16 03:55 40 Intake and Output 05/07/16 05/07/16 05/08/16 Cumulative From/Thru 15:00 23:00 07:00 05/04/16 09:22 - 05/08/16 05:31 Intake Total 880 ml 100 ml 7111 ml Output Total 1100 ml 5775 ml Balance 880 ml -1000 ml 1336 ml Intake Oral 880 ml 100 ml 4782 ml IV Total 2329 ml Output Urine Total 1100 ml 5775 ml # Voids 3 6 # Bowel Movements 0 2 Exam Gen.: Alert elderly male sitting up in chair, appearing stated age, no acute respiratory distress Eyes: Pupils equal round and reactive to light, sclera anicteric, noninjected conjunctiva HENT: Normocephalic atraumatic, external ears without defect, no oral thrush appreciated, mucus membranes moist Neck: Trachea midline, no noted JVD, supple Cardiovascular: Regular rate and rhythm, no rubs or gallops noted, positive systolic murmur Lungs: Bibasilar rales with clear upper lung cunningham Abdomen: Normoactive bowel sounds, soft, nontender, nondistended, bruising noted in lower abdomen bilaterally consistent with subcutaneous insulin injections Extremities: improving mild 1+ pitting peripheral edema noted in the lower extremities up to the knee, no cyanosis or clubbing Radial pulses intact bilaterally; diminished dorsalis pedis pulses bilaterally : No Cisneros in place Neuro: No focal neurologic deficits, no facial drooping, able to move all extremities without issue Psych: normal mood and affect IVs and Medications Medications Reviewed: Medications were reviewed in detail Lab and Diagnostics Result Diagram: 05/08/16 0245 05/08/16 0500 Microbiology Patient tested positive for influenza B on nasal swab with biofire PCR X-Rays, CTs and MRIs X-RAY CHEST ONE VIEW, PORTABLE ([id number]) IMPRESSION: Increased pulmonary vascularity with appearance of mild pleural effusions suggestive of edema. Superimposed area of consolidation in the right base cannot be excluded. Dictated by: Micaela Vines M.D. on 05/04/2016 at 10:15 Approved by: Micaela Vines M.D. on 05/04/2016 at 10:17 Cardiac Echo Impressions Echocardiogram Report Interpretation Summary Left ventricular systolic function is normal. The ejection fraction is estimated to be 65-70%. There is mild mitral regurgitation. There is mild aortic valve sclerosis. There is mild aortic regurgitation. The right ventricular systolic pressure is estimated at 42 mmHg assuming a right atrial pressure of 8 mm Hg. Compared to the prior echo exam, there has been a decrease in the severity of pulmonary hypertension. Electronically signed by: Jace Gallegos on Reading Physician:05/06/2016 10:59 AM Assessment & Plan Patient is an 85-year-old male with past medical history remarkable for diastolic heart failure, insulin-dependent diabetes mellitus type II, hypertension, prostate cancer post surgical resection who presents to the [facility] ED via EMS for confusion and was found to have oxygen saturation in the 80s on room air at the time of EMS arrival. Hospital Day 5 1. Acute hypoxic respiratory failure, present on admission, improving. - O2 supplementation via nasal cannula with O2 goals 90-94%. - Tolerated being off BiPAP last night. Try not to use at night. - May need to evaluate patient for home O2 tomorrow if still requiring 2-4L consistently. - Started prednisone 40 mg today. Continue 5 day course (until 05/13/16). 2. Sepsis, acute, present on admission, improving. - Criteria met with tachycardia (108) and tachypnea (32). Pulmonary source with influenza B and possible post-flu pneumonia. - Treat underlying pulmonary infection as below in #3 and #4. 3. Likely post-influenza pneumonia, acute, present on admission, improving. - Continue ceftriaxone IV 7 day course to end May 10. Can be switched to Cefdinir PO at discharge. - Completed azithromycin IV 5 day course 05/08/16. 4. Influenza B, acute, present on admission, improving. - Continue oseltamivir 10 day course to end May 13. 5. Acute on chronic diastolic congestive heart failure, present on admission, improving. - Complete echo ordered shows intact EF with improvement in pulmonary hypertension - Continue regular Lasix 80mg daily. Give additional dose of 40 mg as needed for increased diuresis. 6. Acute metabolic alkalosis, not present on admission, improving. - Likely secondary to diuretic use with contraction alkalosis. - Diamox given x1 dose. - Continue to monitor BMP. 7. Diabetes mellitus type II, chronic, controlled, presume stable. - A1c 7.7. - Continue Lantus 60 units QAM. - Continue high correction scale lispro. 8. History of Hypertension, present on admission, chronic - Continue amlodipine 10 mg daily and metoprolol 25 mg BID. - Continue furosemide as above in #5. - Consider switch from amlodipine to Lisinopril given type 2 diabetes. 9. Benign prostatic hypertrophy, present on admission, chronic - Continue tamsulosin 0.4 mg HS. 10. Hypomagnesemia, acute, present on admission, resolved. - Continue to monitor mag level and replete as needed. 11. Thrombocytopenia, acute, present on admission, resolved. - Platelets are an acute phase reactant which can oscillate up or down during times of illness. - Continue to monitor CBC. - Bowel regimen available PRN - Antiemetics available PRN - Antacid available PRN. Disposition: Patient will likely be discharged tomorrow, possibly with home health. GI Prophylaxis: Not indicated VTE Prophylaxis: Sub-Q Heparin (Unfractionated), SCDs VTE Mechanical Devices: Intermittant Pneumatic CD Resuscitation Status: CPR: Attempt Resuscitation Time spent 35 minutes Attending Statement The patient was seen and examined together with Dr. Christine on 05/08/16 and I have added additional information to the note above. Nadia Christine DO May 08, 2016 11:23 Brianna Hassan DO May 08, 2016 15:58 Bowel regimen available when necessary Antiemetics available when necessary Disposition: Patient will likely remain inpatient for the next 1-2 days with discharge home, pending physical therapy evaluation. The patient may require home oxygen therapy however this will be evaluated on a day-to-day basis. GI Prophylaxis: Not indicated VTE Prophylaxis: Sub-Q Heparin (Unfractionated), SCDs VTE Mechanical Devices: Intermittant Pneumatic CD Resuscitation Status: CPR: Attempt Resuscitation Nadia Christine DO May 08, 2016 11:23
[2016-05-08] MEDS ORDERED: Albuterol-Ipratropium 3 mL Inhalation Solution NEB PRN (12:20)
--- NOTE | 2016-05-08 14:55 | NUR ---
АЛЕКСАНДР signed OSCAR Hernandez
--- NOTE | 2016-05-08 14:55 | NUR ---
Social Work Note: Continued Discharge Planning Data& Assessment: Per MD pt is medically improving and may be ready for discharge in the next 1-2 days. Per PT, pt requires home health at time of discharge. Pt is normally independent at baseline. Pt is a 2PA at this time. PT to see pt again tomorrow for final recommendations. SW provided pt with home health and SNF list to review for preferences. Pt explained his is also hospitalized on a different floor and he will need time to think about both of their discharge plans. SW to follow up with pt tomorrow regarding final discharge plan. Pt reviewing Home Health list and company brochures. Pt denies any other needs at this time. SW to continue to follow. Plan: Anticipated discharge home with home health vs. SNF. SW to follow up with pt tomorrow regarding final discharge plan. Pt reviewing Home Health list and company brochures. Pt denies any other needs at this time. SW to continue to follow. OSCAR Hernandez
--- NOTE | 2016-05-08 17:50 | NUR ---
Respiratory No reports of chest pain/pressure/discomfort. Tele SR with IVCD, HR 60s.BP within normal limits. No reports of SOB at rest, reports mild SOB with exertion, mostly fatigue. SPO2 weaned to 1L NC with SPO2 at 93%. No reports of n/v/d/c or abdominal pain. Voiding in urinal, BM today -- normal.
[2016-05-09] VITALS (9 sets, daily range): BP systolic 128–160; BP diastolic 64–74; PULSE 63–81; RESP 16–20; O2SAT 90–94
[2016-05-09] MEDS: Heparin 5,000 Unit/mL Inj SUBQ SCH ×3 (00:16→17:05)
[2016-05-09 03:48] LABS: BASOPHILS % (AUTO) 0.4 % (0-3); EOSINOPHILS % (AUTO) 0.4 % (0-5); MONOCYTES % (AUTO) 13.6 % (4-12); Mean Corpuscular Hemoglobin 27.4 pg (27.0-35.0); Mean Corpuscular Volume 84.1 fL (81-100); NEUTROPHILS % (AUTO) 73.4 % (40-74); Platelet Count 210 bil/L (150-400)
[2016-05-09 04:20] LABS: Phosphorus 2.5 mg/dL (2.5-4.9)
[2016-05-09] MEDS: cefTRIAXone Inj 2,000 MG in Dextrose 5% Minibag Plus 50 ML IV SCH (09:08)
[2016-05-09] MEDS: Sodium Chloride LOK Flush 10 mL Syringe IVFLUSH SCH ×2 (09:08→17:04)
[2016-05-09] MEDS: Insulin LISPRO 300 Unit/3 mL Inj SUBQ SCH ×4 (09:09→23:04)
[2016-05-09] MEDS: Potassium Chloride 20 mEq SR Tablet PO SCH (09:09)
[2016-05-09] MEDS: predniSONE 20 mg Tablet PO SCH (09:09)
[2016-05-09] MEDS: Insulin GLARgine 100 Unit/mL Syringe SUBQ SCH (09:10)
--- NOTE | 2016-05-09 13:56 | NUR ---
Social Work Note: Continued Discharge Planning Data& Assessment: LEIDY spoke with pt and pt family regarding discharge planning. Pt daughter shared concerns about pt discharging home with Home Health and readmitting. Pt daughter requested pt be reviewed for nursing needs in order to qualify for SNF. Pt does have CHF, high readmission rate of 4, oxygen needs and has been a 2PA during this hospitalization. Pt is also hospitalized at this time. Per pt , she is hoping pt will get stronger and have a better baseline at home. Pt is also interested in pt going to SNF when medically ready in order to receive more intensive PT and have his nursing needs addressed to prevent readmissions. Pt had already been provided home health/SNF list for preferences. Pt explained has been to [facility] in the past and would like to return there if possible. LEIDY spoke with Laura at [facility] in Admissions and provided access. Laura reported that pt meets criteria for SNF for nursing needs, they are able to accept pt when medically ready and will begin the insurance authorization process which could take up to 24 hours. notified. Pt notified of acceptance and insurance authorization process. Pt denies any other needs at this time. SW to continue to follow. Plan: Anticipated discharge to [facility] pending insurance authorization. MD notified. Pt denies any other needs at this time. LEIDY to continue to follow. OSCAR Hernandez Addendum: 05/09/16 at 1539 by ELLEN VAUGHAN Per PT, pt has increased his walking distance he is able to tolerate. LEIDY spoke with pt daughter regarding LTC planning and offered [facility] information. SW explained that if pt discharges home with home health and they still feel uncomfortable with him discharging home, that the family (their children who live locally) might need to consider helping pt and pt out at home a little more while they recover from this hospitalization. Pt daughter confirmed understanding and appreciates us trying to obtain authorization for SNF stay just in case. SW to continue to follow for insurance authorization or denial for SNF stay. SW to continue to follow. OCSAR Hernandez
--- NOTE | 2016-05-09 15:58 | NUR ---
Activity Dionicio Clayton&Brandon3. VSS. Patient maintaining SpO2 in the low-mid 90s on RA. AMbulates in hallway using FWW with nursing without decrease in SPO2. Denies pain/discomfort. Patient to discharge to [facility] today or tomorrow.
--- NOTE | 2016-05-09 16:58 | PCM.PNMED ---
Subjective Date of Service May 09, 2016 Subjective 85-year-old male with past medical history of congestive heart failure, insulin dependent diabetes mellitus, hypertension admitted for possible pneumonia, acute hypoxic respiratory failure and sepsis. Hospital day 6 Overnight: Uneventful night with no complaints. Telemetry showed sinus rhythm heart rate remained in the 60s and blood pressure remained in normal limits. Oxygen requirements as weaned to 1 L O2 via nasal cannula with O2 saturation levels remaining at 93%. Today: Patient reports no complaints, no chest pain, shortness of breath at rest , abdominal pain, headaches, visual changes, nausea vomiting, GI or disturbances. Overall he feels ready to return to home though is concerned about returning to home by himself as his is also a current patient. Patient reportedly lives at home with and their daughter Elma cares for them. Exam Vital Signs Vital Sign - Last Date Time Temp Pulse Resp B/P Pulse Ox O2 Delivery O2 Flow Rate FiO2 05/09/16 12:36 37.0 70 18 134/64 94 Room Air 05/09/16 03:19 1.00 05/07/16 03:55 40 Intake and Output 05/08/16 05/08/16 05/09/16 Cumulative From/Thru 15:00 23:00 07:00 05/04/16 09:22 - 05/09/16 05:58 Intake Total 1275 ml 400 ml 8786 ml Output Total 1250 ml 1350 ml 8375 ml Balance 25 ml -950 ml 411 ml Intake Oral 1225 ml 400 ml 6407 ml IV Total 50 ml 2379 ml Output Urine Total 1250 ml 1350 ml 8375 ml # Voids 5 11 # Bowel Movements 1 3 Exam General: Elderly gentleman sitting in bedside chair alert and oriented in no acute distress appropriately interactive HEENT: Normocephalic, atraumatic. External ears without defect. Pupils equal, round, and reactive to light and accommodation. Anicteric sclerae, moist conjunctivae, and no lid lag. Oropharynx free of erythema and cobble stoning with moist mucosa. Neck: Supple with full range of motion. No jugular venous distension. Cardiovascular: Regular rate and rhythm Pulmonary: Clear to auscultation bilaterally upper anterior lobes. Mild crackles appreciated at lower lung base bilaterally. Normal respiratory effort with no use of accessory muscles. Abdomen: Bowel tones present. Soft, nontender, nondistended. Extremities: Mild lower extremity pitting edema Skin: Normal temperature, turgor, and texture Neurological: Cranial nerves grossly intact Psychiatric: Normal mood and affect. IVs and Medications Medications Reviewed: Medications were reviewed in detail Lab and Diagnostics Result Diagram: 05/09/1630905/09/16309 Microbiology Patient tested positive for influenza B on nasal swab with biofire PCR 1 of 2 blood cultures grew out coag-negative Staphylococcus X-Rays, CTs and MRIs . X-RAY CHEST ONE VIEW, PORTABLE IMPRESSION: Increased pulmonary vascularity with appearance of mild pleural effusions suggestive of edema. Superimposed area of consolidation in the right base cannot be excluded. Dictated by: Micaela Vines M.D. on 05/04/2016 at 10:15 X-RAY CHEST ONE VIEW, PORTABLE IMPRESSION: Slight decrease in edema and/or pneumonia involving the lung bases, right greater than left. Dictated by: Eric GOODRICH Interpreted: Cami Gramaoj MD on 05/05/2016 at 10:02 X-RAY CHEST ONE VIEW, PORTABLE IMPRESSION: Mild edema and/or pneumonia involving the lung bases increased from prior exam. Dictated by: Eric GOODRICH Interpreted: Cami Gramajo MD on 05/06/2016 at 9:52 Cardiac Echo Impressions Echocardiogram Report Interpretation Summary Left ventricular systolic function is normal. The ejection fraction is estimated to be 65-70%. There is mild mitral regurgitation. There is mild aortic valve sclerosis. There is mild aortic regurgitation. The right ventricular systolic pressure is estimated at 42 mmHg assuming a right atrial pressure of 8 mm Hg. Compared to the prior echo exam, there has been a decrease in the severity of pulmonary hypertension. Electronically signed by: Jace Gallegos on Reading Physician:05/06/2016 10:59 AM Assessment & Plan Kar Gonzalez Junior is an 85-year-old male with past medical history remarkable for diastolic heart failure, insulin-dependent diabetes mellitus type II, hypertension, prostate cancer post surgical resection who presents to the [facility] ED via EMS for confusion and was found to have oxygen saturation in the 80s on room air at the time of EMS arrival. 1. Acute hypoxic respiratory failure, present on admission. Present on admission. Resolved - Patient was noted to have oxygen saturation in the low 80s on EMS arrival - In the ED the patient was noted to be saturating in the mid 70s prior to BiPAP placement per nursing reports - Patient able to be weaned off BiPAP - Currently O2 saturation 94-93% on room air 2. Sepsis, present on admission, acute. Resolved - SIRS criteria are met with leukocytosis of greater than 11,000, heart rate of 108 and respiratory rate of 32 at admission - Patient currently hemodynamic stable with heart rate 72, temperature 36.4, respiratory rate 18. - Chest x-ray 05/06/2016 shows mild edema and/or pneumonia at lung bases bilaterally - Viral PCR of nasal swab positive for influenza B - Pro calcitonin is indeterminate at 0.27, lactate trended has been normal since admission - Discontinue IV fluids given obvious fluid overload - Continue ceftriaxone IV 7 day course to end May 10 - Continue azithromycin IV 7 day course to end May 10 - Continue oseltamivir 10 day course to end May 13 3. Likely post-influenza pneumonia, present on admission, acute - Continue antibiotic course with ceftriaxone IV and azithromycin IV to cover gram positives gram negatives and atypicals as described above - Treating sepsis with intravenous fluids trending lactate 4. Influenza B, present on admission, acute - Patient tested positive for influenza B on viral PCR - Oseltamivir 75 mg twice a day as described above 5. Acute on chronic diastolic congestive heart failure, present on admission. Ongoing - Mild peripheral edema noted on physical exam - Metoprolol tartrate 25 mg twice a day - Echo from 3 years ago noted diastolic heart failure with preserved ejection fraction - Echo 05/06/2016 shows EF 65-70, mild mitral regurgitation, mild aortic valve sclerosis, mild aortic regurgitation. Left ventricular systolic function is normal - lasix 80mg daily 6. Diabetes mellitus type II, present on admission, chronic - Patient medication confirmed with [facility] - Patient started on Lantus 60 units daily 05/05/2016 - Patient started on high correction scale lispro 05/04/2016 7. History of Hypertension, present on admission, chronic - Consider addition of KEENAN inhibitor - Amlodipine 10 mg daily - Lasix as in #5 8. Benign prostatic hypertrophy, present on admission, chronic - Tamsulosin 0.4 mg at bedtime 9. Hypomagnesemia, present on admission, acute - Magnesium IV repletion - Continue to monitor 10. Mild thrombocytopenia, present on admission, unknown duration - 136,000 at admission currently 210,000 - Platelets are an acute phase reactant which can oscillate up or down during times of illness - Continue to monitor Bowel regimen available when necessary Antiemetics available when necessary Disposition: Patient will be discharged tomorrow to [facility], awaiting confirmation GI Prophylaxis: Not indicated VTE Prophylaxis: Sub-Q Heparin (Unfractionated), SCDs VTE Mechanical Devices: Intermittant Pneumatic CD Resuscitation Status: CPR: Attempt Resuscitation Attending Statement The patient was seen and examined together with Dr. Mendez on 05/09/2016 and I agree with the history, exam and plan as outlined in the note above. . JOSEPHINE MENDEZ DO May 09, 2016 14:21 Kar Lyons MD May 11, 2016 08:00
[2016-05-10] MEDS: Sodium Chloride LOK Flush 10 mL Syringe IVFLUSH SCH ×2 (00:44→08:22)
[2016-05-10] MEDS: Heparin 5,000 Unit/mL Inj SUBQ SCH ×2 (00:47→08:29)
[2016-05-10 03:39] VITALS: BP 156/71; PULSE 65; RESP 20; O2SAT 94
[2016-05-10 03:47] LABS: BASOPHILS % (AUTO) 0.3 % (0-3); EOSINOPHILS % (AUTO) 0.4 % (0-5); MONOCYTES % (AUTO) 13.9 % (4-12); Mean Corpuscular Hemoglobin 27.6 pg (27.0-35.0); Mean Corpuscular Volume 83.6 fL (81-100); NEUTROPHILS % (AUTO) 72.5 % (40-74); Platelet Count 225 bil/L (150-400)
--- NOTE | 2016-05-10 06:25 | NUR ---
Activity/sats Sats have been in low-mid 90's on room air throughout the night. Denies pain. Up to commode with standby assist for large BM. Has slept much of the night. Anticipating discharge to [facility] later today.
[2016-05-10] MEDS: Insulin LISPRO 300 Unit/3 mL Inj SUBQ SCH ×2 (08:00→12:49)
[2016-05-10] MEDS ORDERED: 0.9% Sodium Chloride 0 ML ONE (08:01)
[2016-05-10 08:08] VITALS: PULSE 67; RESP 18; O2SAT 90
[2016-05-10] MEDS: cefTRIAXone Inj 2,000 MG in Dextrose 5% Minibag Plus 50 ML IV SCH (08:15)
[2016-05-10] MEDS: predniSONE 20 mg Tablet PO SCH (08:24)
[2016-05-10] MEDS: Potassium Chloride 20 mEq SR Tablet PO SCH (08:31)
[2016-05-10] MEDS: Insulin GLARgine 100 Unit/mL Syringe SUBQ SCH (08:32)
[2016-05-10 08:34] VITALS: BP 163/72; PULSE 73; RESP 20; O2SAT 92
--- NOTE | 2016-05-10 09:23 | DRSVH ---
PROCEDURE: X-RAY CHEST ONE VIEW, PORTABLE ([id number]) INDICATIONS: Pneumonia TECHNIQUE: One view of the chest was acquired. COMPARISON: 05/06/2016 FINDINGS: Surgical changes and devices: None. Lungs and pleura: No pneumothorax. Bibasilar infiltrates appear improved. Elevation right hemidiaphr agm persists. Slight blunting of the right costophrenic angle. Mediastinum: Mediastinal contours appear normal. Heart size is normal. Bones and chest wall: No suspicious bony lesions. Overlying soft tissues appear unremarkable. IMPRESSION: Resolving bibasilar pneumonia Dictated by: Stefano Gray M.D. on 05/10/2016 at 9:21 Approved by: Stefano Gray M.D. on 05/10/2016 at 9:22
[2016-05-10 10:44] VITALS: PULSE 61
--- NOTE | 2016-05-10 11:34 | PCM.DIMED ---
JOSEPHINE MENDEZ DO 05/10/16 1121: Discharge Instructions Date of Service May 10, 2016 Dates of Hospitalization May 04, 2016 at 11:26 Discharge Diagnosis Discharge Diagnosis 1. Acute hypoxic respiratory failure, present on admission 2. Sepsis, present on admission 3. Likely post-influenza pneumonia 4. Influenza B 5. Acute on chronic diastolic congestive heart failure 6. Diabetes mellitus type II 7. History of Hypertension 8. Benign prostatic hypertrophy 9. Hypomagnesemia 10. Mild thrombocytopenia Medication Instructions I am continuing your home medications of amlodipine, aspirin, calcium carbonate , vitamin D3, furosemide, insulin glargine, insulin lispro, lovastatin, metformin, metoprolol, potassium chloride and tamsulosin Diet Heart Healthy, Diabetic Activity Limited until seen by PCP Call your provider Fever or Chills, Shortness of breath, Bleeding, Chest pain, Vomitting, Excessive diarrhea, Weakness (unilateral) Patient Instructions Please follow-up with your primary care provider within 1-2 weeks or as next available appointment regarding today's hospital visit. Follow-up Provider: Dony Bradley DO Follow-up with PCP in: 1 week (1-2 weeks) Kar Lyons MD 05/11/16 0800: Discharge Instructions Attending's Statement The patient was seen and examined together with Dr. Mendez on 05/10/2016 and I agree with the history, exam and plan as outlined in the note above. . JOSEPHINE MENDEZ DO May 10, 2016 11:21 Kar Lyons MD May 11, 2016 08:00
--- NOTE | 2016-05-10 12:31 | NUR ---
Faxed orders and placed copy in chart, patient to be transported by Dimple Rosa at 1300 Updated COVER REMOVER
--- NOTE | 2016-05-10 12:46 | NUR ---
Social Work Note: Discharge Data& Assessment: Per pt is medically ready to discharge to [facility] via wheelchair van today. Kar Gonzalez is a 85 year old male admitted on 05/04/2016 for hypoxia and CHF. Per pt is medically improved and ready for discharge. Per Laura from [facility], they are able to accept pt today and have obtained insurance authorization from [facility] with [facility]. [facility] arranging wheelchair van transportation for 1:00p.m. Pt and pt family notified and agreeable to plan. No other discharge needs identified. Pt and pt family deny any other needs. MD, RN, pt, pt family, and facility all updated and agreeable to plan. Plan: Per pt is medically ready to discharge to [facility] via wheelchair arranged by the facility. Insurance authorization obtained for 7 days. Pt and pt family notified and agreeable to plan. No other discharge needs identified. Pt and pt family deny any other needs. MD, RN, pt, pt family, and facility all updated and agreeable to plan. OSCAR Hernandez
--- NOTE | 2016-05-10 13:18 | NUR ---
Discharge Report called to [facility]. IV was removed. Telemetry leads were removed. Pt received lunch, and 10 units of humalog (CBG [id number]). Transport arrived and took patient via wheelchair around 1315 with all belongings and possessions. Transfer sheet + packet sent with patient.
--- NOTE | 2016-05-10 18:45 | PCM.DC.MED ---
Discharge Summary Date of Service May 10, 2016 Dates of Hospitalization Date of Hospital Admission May 04, 2016 at 11:26 Date of Discharge: May 10, 2016 Providers: Admitting Physician: Brianna Hassan DO Primary Care Physician: Dony Bradley DO Attending Physician: Brianna Hassan DO Diagnosis at Time of Discharge Diagnosis at Time of Discharge 1. Acute hypoxic respiratory failure, present on admission 2. Sepsis, present on admission 3. Likely post-influenza pneumonia 4. Influenza B 5. Acute on chronic diastolic congestive heart failure 6. Diabetes mellitus type II 7. History of Hypertension 8. Benign prostatic hypertrophy 9. Hypomagnesemia 10. Mild thrombocytopenia Procedures XRay, CTs & MRIs . X-RAY CHEST ONE VIEW, PORTABLE IMPRESSION: Increased pulmonary vascularity with appearance of mild pleural effusions suggestive of edema. Superimposed area of consolidation in the right base cannot be excluded. Dictated by: Micaela Vines M.D. on 05/04/2016 at 10:15 X-RAY CHEST ONE VIEW, PORTABLE IMPRESSION: Slight decrease in edema and/or pneumonia involving the lung bases, right greater than left. Dictated by: Eric GOODRICH Interpreted: Cami Gramajo MD on 05/05/2016 at 10:02 X-RAY CHEST ONE VIEW, PORTABLE IMPRESSION: Mild edema and/or pneumonia involving the lung bases increased from prior exam. Dictated by: Eric GOODRICH Interpreted: Cami Gramajo MD on 05/06/2016 at 9:52 Cardiac Echo Impression Echocardiogram Report Interpretation Summary Left ventricular systolic function is normal. The ejection fraction is estimated to be 65-70%. There is mild mitral regurgitation. There is mild aortic valve sclerosis. There is mild aortic regurgitation. The right ventricular systolic pressure is estimated at 42 mmHg assuming a right atrial pressure of 8 mm Hg. Compared to the prior echo exam, there has been a decrease in the severity of pulmonary hypertension. Electronically signed by: Jace Gallegos on Reading Physician:05/06/2016 10:59 AM Brief History History and physical per Dr. Ellis on 05/04/2016 "Kar Gonzalez Junior is an 85-year-old male with past medical history remarkable for diastolic heart failure, insulin-dependent diabetes mellitus type II, hypertension, prostate cancer post surgical resection who presents to the [facility] ED via EMS for confusion. 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 The patient's is currently hospitalized with influenza. The patient states that he and his have been sick since last April 29. The patient states that he has been feeling mildly short of breath and with a general sense of illness and muscle aches. The patient denies any sore throat and runny nose or worsening cough. Per patient's daughter's report the patient was sent home from work from the [facility] and when he was found at home he was sitting in his work van with the engine off acting as if in a daze. EMS was called and the patient was noted to have an O2 sat of 80% on room air, blood pressure of 200/70 with a heart rate of 100, and blood glucose of 63. The patient denies any swelling of his hands or feet. He is unsure if he takes a daily water pill." Hospital Course Kar Gonzalez Junior is an 85-year-old male with past medical history remarkable for diastolic heart failure, insulin-dependent diabetes mellitus type II, hypertension, prostate cancer post surgical resection who presents to the [facility] ED via EMS for confusion and was found to have oxygen saturation in the 80s on room air at the time of EMS arrival. 1. Acute hypoxic respiratory failure, present on admission. Present on admission. Resolved - Patient was noted to have oxygen saturation in the low 80s on EMS arrival - In the ED the patient was noted to be saturating in the mid 70s prior to BiPAP placement per nursing reports - Patient able to be weaned off BiPAP and placed on nasal cannula eventually transition to room air -At time of discharge O2 saturation 94-93% on room air 2. Sepsis, present on admission, acute. Resolved - SIRS criteria are met with leukocytosis of greater than 11,000, heart rate of 108 and respiratory rate of 32 at admission - At time of discharge patient hemodynamic stable with heart rate 73, temperature 36.5, respiratory rate 20. - Chest x-ray 05/06/2016 showED mild edema and/or pneumonia at lung bases bilaterally, repeat chest x-ray showed improvement and resolution of this - Viral PCR of nasal swab positive for influenza B - Pro calcitonin is indeterminate at 0.27, lactate trended has been normal since admission - IV fluids discontinued given obvious fluid overload - Completed course of ceftriaxone IV 7 days - Completed course of azithromycin IV 7 days - Continued oseltamivir 10 day course to end May 13, fortunately this was not continued at time of discharge. We will call discharge facility to send 3 additional days of this prescription. 3. Likely post-influenza pneumonia, present on admission, resolved - Completed antibiotic course with ceftriaxone IV and azithromycin IV to cover gram positives gram negatives and atypicals as described above 4. Influenza B, present on admission, improved - Patient tested positive for influenza B on viral PCR - Oseltamivir 75 mg twice a day as described above 5. Acute on chronic diastolic congestive heart failure, present on admission. Ongoing - Mild peripheral edema noted on physical exam - Metoprolol tartrate 25 mg twice a day - Echo from 3 years ago noted diastolic heart failure with preserved ejection fraction - Echo 05/06/2016 shows EF 65-70, mild mitral regurgitation, mild aortic valve sclerosis, mild aortic regurgitation. Left ventricular systolic function is normal - lasix 80mg daily 6. Diabetes mellitus type II, present on admission, ongoing - Patient medication confirmed with [facility] - Patient started on Lantus 60 units daily 05/05/2016 - Patient started on high correction scale lispro 05/04/2016 7. History of Hypertension, present on admission ongoing - Consider addition of KEENAN inhibitor - Gave Amlodipine 10 mg daily - Gave Lasix as in #5 8. Benign prostatic hypertrophy, present on admission, ongoing - Gave Tamsulosin 0.4 mg at bedtime 9. Hypomagnesemia, present on admission, resolved - Magnesium IV repletion - Continue to monitor 10. Mild thrombocytopenia, present on admission, resolved - 136,000 at admission currently 225,000 - Platelets are an acute phase reactant which can oscillate up or down during times of illness Exam Vital Signs (Last) Date Time Temp Pulse Resp B/P Pulse Ox O2 Delivery O2 Flow Rate FiO2 05/10/16 10:44 61 05/10/16 08:34 36.5 20 163/72 92 Room Air 05/09/16 03:19 1.00 05/07/16 03:55 40 Exam General: Elderly gentleman sitting in bedside chair alert and oriented in no acute distress appropriately interactive. Eating lunch at time of exam HEENT: Normocephalic, atraumatic. External ears without defect. Neck: Supple with full range of motion. No jugular venous distension. Cardiovascular: Regular rate and rhythm Pulmonary: Clear to auscultation bilaterally upper anterior lobes. Mild crackles appreciated at lower lung base bilaterally, improved from yesterday. Normal respiratory effort with no use of accessory muscles. Abdomen: Bowel tones present. Soft, nontender, nondistended. Extremities: Mild lower extremity pitting edema, Skin: Normal temperature, turgor, and texture Neurological: Cranial nerves grossly intact Psychiatric: Normal mood and affect. Test 05/04/16 09:40 05/04/16 11:35 05/04/16 16:22 05/04/16 18:40 Hemoglobin A1c 7.7% (4.8-5.6) Troponin T 0.010ug/L (0.0-0.011) Thyroid Stimulating Hormone (TSH) 1.790uIU/mL (0.450-4.500) Urine Color Yellow (YELLOW) Urine Appearance Hazy (CLEAR,HAZY) Urine pH 6.0 (5.0-8.0) Urine Specific Reinbeck 1.005 (1.003-1.035) Urine Protein Tracemg/dL (NEG,TRACE) Urine Glucose (UA) Negativemg/dL (NEGATIVE) Urine Ketones Negativemg/dL (NEGATIVE) Urine Occult Blood Small (NEGATIVE) Urine Nitrite Negative (NEGATIVE) Urine Bilirubin Negative (NEGATIVE) Urine Urobilinogen Normalmg/dL (NORMAL) Urine Leukocyte Esterase Negative (NEGATIVE) Urine RBC 0-2/hpf (0-2) Urine WBC 0-5/hpf (0-5) Urine Epithelial Cells Occasional/hpf (NONE-MOD) Urine Crystals None seen (NONE SEEN) Urine Bacteria Few/hpf (NONE-FEW) Urine Hyaline Casts None/lpf (NONE) Urine Granular Casts None seen (NONE SEEN) Urine Waxy Casts None seen (NONE SEEN) Urine Red Blood Cell Casts None seen (NONE SEEN) Urine White Blood Cell Casts None seen (NONE SEEN) Urine Mucus None seen (None Seen) Urine Trichomonas None seen (NONE SEEN) Urine Yeast None (NONE SEEN) Urinalysis Comment None Urine Culture Reflexed Not indicated Lactic Acid Level 1.4mmol/L (0.4-2.0) Hold Nunez Top Tube Received (Received) Test 05/08/16 02:45 05/08/16 05:00 05/09/16 03:10 05/10/16 03:20 Band Neutrophils % 0% (1-5) Pro-B-Type Natriuretic Peptide 347.6pg/mL (0-486) Phosphorus Level 2.5mg/dL (2.5-4.9) White Blood Count 6.8th/mm3 (3.8-10.1) Red Blood Count 4.75mil/mm3 (4.40-5.80) Hemoglobin 13.1g/dL (13.8-17.2) Hematocrit 39.7% (41.0-50.0) Mean Corpuscular Volume 83.6fL (81-100) Mean Corpuscular Hemoglobin 27.6pg (27.0-35.0) Mean Corpuscular Hemoglobin Concent 33.0% (32.0-37.0) Red Cell Distribution Width 14.6% (12.3-15.4) Platelet Count 225bil/L (150-400) Neutrophils (%) (Auto) 72.5% (40-74) Lymphocytes (%) (Auto) 12.0% (14-46) Monocytes (%) (Auto) 13.9% (4-12) Eosinophils (%) (Auto) 0.4% (0-5) Basophils (%) (Auto) 0.3% (0-3) Sodium Level 139mEq/L (134-144) Potassium Level 4.1mEq/L (3.5-5.2) Chloride Level 100mEq/L (97-108) Carbon Dioxide Level 25mmol/L (18-29) Blood Urea Nitrogen 27mg/dL (8-27) Creatinine 0.75mg/dL (0.76-1.27) Estimat Glomerular Filtration Rate 105mL/min (>59) Glucose Level 183mg/dL (60-99) Calcium Level 9.1mg/dL (8.5-10.1) Magnesium Level 2.0mg/dL (1.6-2.6) Total Bilirubin 0.3mg/dL (0.0-1.2) Aspartate Amino Transf (AST/SGOT) 17U/L (0-50) Alanine Aminotransferase (ALT/SGPT) 13U/L (0-44) Alkaline Phosphatase 67U/L (25-160) Total Protein 6.3g/dL (6.4-8.4) Albumin 3.0g/dL (3.4-5.0) Procalcitonin 0.19ng/mL (0.00-0.08) Microbiology Results Patient tested positive for influenza B on nasal swab with biofire PCR 1 of 2 blood cultures grew out coag-negative Staphylococcus Discharge Medications Discharge Medications Amlodipine (Amlodipine) 10 Mg Tablet 10 MG PO DAILY (Reported) Aspirin (Aspirin) 81 Mg Tablet 81 MG PO DAILY (Reported) Calcium Carbonate (Calcium) 600 Mg Tablet 1,200 MG PO DAILY (Reported) Cholecalciferol (Vitamin D3) (Vitamin D3) 400 Unit Tablet 400 UNIT PO DAILY ( Reported) Furosemide (Furosemide) 80 Mg Tab 80 MG PO DAILY (Reported) Insulin Glargine (Lantus U100 Insulin Vial) 100 Unit/Ml Vial 60 UNIT SUBQ MORNING (Reported) Insulin Human Lispro (HumaLOG U100 Insulin Vial) 100 Unit/Ml Unit 7 UNIT SUBQ TIDWM (Reported) Check blood sugars before meals and at bedtime. Use correction factor only before meals. Blood Sugar Lispro Correction: <151, 0 units; 151-175, 1 unit; 176-200, 2 units; 201-225, 3 units; 226-250, 4 units; 251-275, 5 units; 276-300 , 6 units; 301-325, 7 units; 326-350, 8 units; 351-375, 9 units; 376-400, 10 units; >400, 12 units. Lovastatin (Lovastatin) 20 Mg Tablet 20 MG PO HS (Reported) Metformin HCl (Metformin HCl ER) 1,000 Mg [id number] 1,000 MG PO BID (Reported) Metoprolol Tartrate (Metoprolol Tartrate) 25 Mg Tablet 25 MG PO BID (Reported) Potassium Chloride (Potassium Chloride) 20 Meq Tab.er.prt 20 MEQ PO DAILY ( Reported) Tamsulosin ER (Tamsulosin ER) 0.4 Mg Cap.er.24h 0.4 MG PO HS (Reported) Additional med instructions I am continuing your home medications of amlodipine, aspirin, calcium carbonate , vitamin D3, furosemide, insulin glargine, insulin lispro, lovastatin, metformin, metoprolol, potassium chloride and tamsulosin Followup Plan Disposition: Discharged to [facility] facility Discharge Diet: Heart Healthy, Diabetic Discharge Activity: Limited until seen by PCP Patient Instructions Please follow-up with your primary care provider within 1-2 weeks or as next available appointment regarding today's hospital visit. Follow-up Provider: Dony Bradley DO Follow-up with PCP in: 1 week (1-2 weeks) Time spent Greater than 30 minutes was spent in preparation of discharge with greater than 50% of that time dedicated to patient counseling and coordination of care. . Attending Statement The patient was seen and examined together with Dr. Mendez on 05/10/2016 and I agree with the history, exam and plan as outlined in the note above. . copies to: Dony Bradley GILES A DO May 10, 2016 18:45 Kar Lyons MD May 11, 2016 08:01
[2016-05-11] MEDS ORDERED: TAM75UDCAP PO (09:01)
== END 2016-05-10 13:15 | DRG 871 ==
LOC: EDUNIT# 09:14 → SED 09:14 → EDBD 09:14 → PCC 11:26
PROVIDERS: ADMIT Neuromusculoskeletal Medicine & OMM; ATTEND Neuromusculoskeletal Medicine & OMM
PROC: 5A09458 Assistance with Respiratory Ventilation, 24-96 Consecutive Hours, Intermittent Positive Airway Pressure (ICD-10-PCS; principal; 2016-05-04)
PROC: 4A033B1 Measurement of Arterial Pressure, Peripheral, Percutaneous Approach (ICD-10-PCS; 2016-05-04)
DX: A41.9 Sepsis, unspecified organism (principal); J96.01 Acute respiratory failure with hypoxia; I50.33 Acute on chronic diastolic (congestive) heart failure; J10.01 Influenza due to other identified influenza virus with the same other identified influenza virus pneumonia; E87.3 Alkalosis; E83.42 Hypomagnesemia; D69.6 Thrombocytopenia, unspecified; N40.0 Benign prostatic hyperplasia without lower urinary tract symptoms; I10 Essential (primary) hypertension; E11.8 Type 2 diabetes mellitus with unspecified complications; Z79.4 Long term (current) use of insulin; Z87.891 Personal history of nicotine dependence; Z79.82 Long term (current) use of aspirin; Z85.46 Personal history of malignant neoplasm of prostate